=== PATIENT | female | born 1960 | race Two or more races ===

== ENCOUNTER 2016-07-26 08:05 | Day surgery (SDC) | payer MEDICAID, MEDICARE, OTHER ==
[~2016-07-26 08:05] MED LIST: Lactated Ringers 1,000 ML IV SCH; Sodium Chloride 0.9% 10 ML Syringe FLUSH PRN
[2016-07-26] MEDS ORDERED: Propofol 200 MG/20 ML SDV ONE ×2 (08:27→09:10)
--- NOTE | 2016-07-26 09:20 | PCM.HP ---
H&P History of Present Illness - General Date of Service: 07/26/16 Admit Problem/Dx: Admission Diagnosis/Problem Admission Diagnosis/Problem Carpal tunnel syndrome Source of Information: Patient, Old Records History Limitations: Reports: No Limitations - History of Present Illness Initial Comments - Free Text/Narative: Here for right carpal tunnel release Onset of Symptoms: Reports: Gradual - Related Data Allergies/Adverse Reactions: Allergies Allergy/AdvReac Type Severity Reaction Status Date / Time atorvastatin calcium Allergy Muscle Verified 07/06/15 12:07 [From Lipitor] Aches fenofibrate Allergy Dizziness Verified 07/06/15 12:07 sumatriptan [From Imitrex] Allergy Rash Verified 07/06/15 12:07 sumatriptan succinate Allergy Rash Verified 07/06/15 12:07 [From Imitrex] hmg-coa reductase inhibitors Allergy Cannot Uncoded 07/06/15 12:07 Remember Home Medications: Home Meds ALPRAZolam [Alprazolam] 0.5 mg PO BID 02/25/13 [History] Aspirin/Dipyridamole [Aggrenox 200-25 MG] 200 mg PO BID 02/25/13 [History] Atenolol [Tenormin] 25 mg PO BID 02/25/13 [History] Multivitamin [Multivitamins] 1 each PO DAILY 02/25/13 [History] Ibuprofen 200 - 400 mg PO Q6HR PRN 07/05/15 [History] Acetaminophen with Codeine [Acetaminophen-Cod #3] 1 tab PO ASDIRECTED PRN [History] Past Medical History HEENT History: Reports: Cataract Other HEENT History: seasonal allergies Cardiovascular History: Reports: Arrhythmia Other Cardiovascular History: hx. 1st degree AV block. hx. 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 Musculoskeletal History: Reports: Other (See Below) Other Musculoskeletal History: right rotator cuff tendinopathy bursitis Neurological History: Reports: TIA, Other (See Below) Other Neuro History: kidd's palsy Psychiatric History: Reports: Anxiety, Depression Endocrine/Metabolic History: Reports: Other (See Below) Other Endocrine/Metabolic History: hyperglycemia Oncologic (Cancer) History: Reports: Breast Other Oncologic History: Breast cancer chemotherapy treatment Dermatologic History: Reports: None - Past Surgical History Female Surgical History: Reports: Hysterectomy Oncologic Surgical History: Reports: Lumpectomy Other Oncologic Surgeries/Procedures: Lymph node dissection with multiple breast biopsies. Social & Family History - Tobacco Use Smoking Status *Q: Current Every Day Smoker Years of Tobacco use: 25 Packs/Tins Daily: 0.2 Used Tobacco, but Quit: Yes Month Tobacco Last Used: jan 2015 Second Hand Smoke Exposure: Yes - Caffeine Use Caffeine Use: Reports: Coffee, Tea - Alcohol Use Days Per Week of Alcohol Use: 3 Number of Drinks Per Day: 5 Total Drinks Per Week: 15 - Recreational Drug Use Recreational Drug Use: No H&P Review of Systems - Review of Systems: Review Of Systems: ROS reveals no pertinent complaints other than HPI. Exam - Exam Exam: See Below - Vital Signs Vital Signs: Last Vital Signs Temp 98.3 F 07/26/16 08:27 Pulse 69 07/26/16 08:27 Resp 20 07/26/16 08:27 BP 130/77 07/26/16 08:27 Pulse Ox Weight: 77.111 kg - Exam General: Alert, Oriented Lungs: Clear to Auscultation, Normal Respiratory Effort Cardiovascular: Regular Rate, Regular Rhythm *Q Meaningful Use (ADM) - VTE *Q VTE Criteria *Q: - Stroke *Q Stroke Criteria *Q: - AMI *Q AMI Criteria *Q: Problem List Initiated/Reviewed/Updated: Yes Orders Last 24hrs: Active Orders 24 hr Category Date Time Status Patient Status [ADT] Routine ADT 07/26/16 08:00 Active Peripheral IV Care [RC] . DIRECTED Care 07/26/16 08:00 Active Verify Patient Consent Obtain [RC] ASDIRECTED Care 07/26/16 08:00 Active Nothing Per Oral Diet [DIET] Diet 07/26/16 Breakfast Active Lactated Ringers [Ringers, Lactated] 1,000 ml Med 07/26/16 08:00 Active IV ASDIRECTED Sodium Chloride 0.9% [Saline Flush] Med 07/26/16 08:00 Active 10 ml FLUSH ASDIRECTED PRN Peripheral IV Insertion Adult [OM.PC] Routine Oth 07/26/16 08:00 Ordered Resuscitation Status Routine Resus Stat 07/25/16 10:31 Ordered Medication Orders Lactated Ringer's (Ringers, Lactated) 1,000 mls @ 125 mls/hr IV ASDIRECTED KIRIT Last Admin: 07/26/16 08:36 Dose: 125 mls/hr Sodium Chloride (Saline Flush) 10 ml FLUSH ASDIRECTED PRN PRN Reason: Keep Vein Open Assessment/Plan Comment:: Right CTS Will proceed with R CTR
--- NOTE | 2016-07-26 09:41 | PCM.OPNOTE ---
- General Post-Op/Procedure Note Date of Surgery/Procedure: 07/26/16 Operative Procedure(s): R CTR Pre Op Diagnosis: R CTS Post-Op Diagnosis: Same Anesthesia Technique: Local, MAC Primary Surgeon: Jared Baird EBL in mLs: 0 Complications: None Condition: Good Free Text/Narrative:: Intake & Output 07/25/16 07/26/16 07/26/16 22:59 06:59 14:59 Intake Total 700 Balance 700
[2016-07-26 10:50] VITALS: BP 141/81
--- NOTE | 2016-07-26 14:48 | OR ---
Date of Procedure: 07/26/2016 PREOPERATIVE DIAGNOSIS: Right carpal tunnel syndrome. POSTOPERATIVE DIAGNOSIS: Right carpal tunnel syndrome. PROCEDURE: Right carpal tunnel release. ANESTHESIA: Local MAC. PROCEDURE IN DETAIL: The patient was brought to the operating room after surgical site had been marked by myself and the patient. Time-out was performed. The right upper extremity was exsanguinated and tourniquet inflated. The hand and forearm were prepped and draped sterilely. 1% lidocaine was used to infiltrate the surgical site. A routine incision was were made over the transverse carpal ligament and extended through the palmar aponeurosis. The transverse carpal ligament was identified and sharply incised until the median nerve was visible. The ligament was split distally into the palm, then proximally into the wrist. Finger palpation and inspection revealed all constricting bands to be released. Wound was irrigated and closed with interrupted 4-0 Prolene vertical mattress sutures. Antibiotic ointment and sterile bulky pressure dressing was applied. The patient tolerated the procedure well and returned to recovery in stable condition. ESTIMATED BLOOD LOSS: None. LIBERTY LEE MD /[id number]
== END 2016-07-26 10:44 | disposition home or self-care (01) ==
LOC: LL.SDS 08:05
PROVIDERS: ATTEND Surgery
DX: G56.01 Carpal tunnel syndrome, right upper limb (principal); F41.9 Anxiety disorder, unspecified; F32.9 Major depressive disorder, single episode, unspecified; G51.0 Bell's palsy; E78.5 Hyperlipidemia, unspecified; I44.0 Atrioventricular block, first degree; F17.210 Nicotine dependence, cigarettes, uncomplicated; Z90.710 Acquired absence of both cervix and uterus; Z98.890 Other specified postprocedural states; Z86.73 Personal history of transient ischemic attack (TIA), and cerebral infarction without residual deficits; Z79.82 Long term (current) use of aspirin; Z79.899 Other long term (current) drug therapy; Z85.3 Personal history of malignant neoplasm of breast; Z92.21 Personal history of antineoplastic chemotherapy; Z88.8 Allergy status to other drugs, medicaments and biological substances
CPT/HCPCS: 64721; J2704; J7120

== ENCOUNTER 2016-08-09 07:50 | Day surgery (SDC) | payer MEDICAID, MEDICARE, OTHER ==
[2016-08-09] MEDS ORDERED: Sodium Chloride 0.9% 10 ML Syringe FLUSH PRN (08:00)
[2016-08-09] MEDS ORDERED: fentaNYL 100 MCG/2 ML SDV ONE ×2 (08:29→08:52)
[2016-08-09] MEDS ORDERED: Midazolam 1 MG/ML 2 ML SDV ONE ×2 (08:29→08:52)
[2016-08-09] MEDS ORDERED: Lactated Ringers 1,000 ML IV SCH (08:45)
[2016-08-09] MEDS ORDERED: Ketorolac 30 MG/ML SDV ONE (08:52)
--- NOTE | 2016-08-09 09:02 | PCM.HP ---
H&P History of Present Illness - General Date of Service: 08/09/16 Admit Problem/Dx: Admission Diagnosis/Problem Admission Diagnosis/Problem Carpal tunnel syndrome Source of Information: Patient, Old Records History Limitations: Reports: No Limitations - History of Present Illness Initial Comments - Free Text/Narative: Here for left CTR - Related Data Allergies/Adverse Reactions: Allergies Allergy/AdvReac Type Severity Reaction Status Date / Time atorvastatin calcium Allergy Muscle Verified 08/09/16 08:29 [From Lipitor] Aches fenofibrate Allergy Dizziness Verified 08/09/16 08:29 sumatriptan [From Imitrex] Allergy Rash Verified 08/09/16 08:29 sumatriptan succinate Allergy Rash Verified 08/09/16 08:29 [From Imitrex] hmg-coa reductase inhibitors Allergy Cannot Uncoded 08/09/16 08:29 Remember Home Medications: Home Meds ALPRAZolam [Alprazolam] 0.5 mg PO BID 02/25/13 [History] Aspirin/Dipyridamole [Aggrenox 200-25 MG] 200 mg PO BID 02/25/13 [History] Atenolol [Tenormin] 25 mg PO BID 02/25/13 [History] Multivitamin [Multivitamins] 1 each PO DAILY 02/25/13 [History] Ibuprofen 200 - 400 mg PO Q6HR PRN 07/05/15 [History] Acetaminophen with Codeine [Acetaminophen-Cod #3] 1 tab PO ASDIRECTED PRN [History] Past Medical History HEENT History: Reports: Impaired Vision Other HEENT History: wears glasses Cardiovascular History: Reports: High Cholesterol Other Cardiovascular History: TIA. Bowman's palsy. 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 Musculoskeletal History: Reports: None Other Musculoskeletal History: HX right rotator cuff tendinopathy and bursitis Neurological History: Reports: None, Other (See Below) Other Neuro History: [place] Palsy Psychiatric History: Reports: Anxiety Endocrine/Metabolic History: Reports: None Other Endocrine/Metabolic History: Hyperglycemia Hematologic History: Reports: None Oncologic (Cancer) History: Reports: None Other Oncologic History: Breast cancer chemotherapy treatment Dermatologic History: Reports: None - Past Surgical History Female Surgical History: Reports: Breast Biopsy, Hysterectomy, Mastectomy, Other (See Below) Other Female Surgeries/Procedures: lumpectomy Social & Family History - Tobacco Use Smoking Status *Q: Current Every Day Smoker Years of Tobacco use: 30 Packs/Tins Daily: 0.2 Used Tobacco, but Quit: Yes Month Tobacco Last Used: jan 2015 Second Hand Smoke Exposure: Yes - Caffeine Use Caffeine Use: Reports: Coffee - Alcohol Use Days Per Week of Alcohol Use: 3 Number of Drinks Per Day: 5 Total Drinks Per Week: 15 - Recreational Drug Use Recreational Drug Use: No H&P Review of Systems - Review of Systems: Review Of Systems: ROS reveals no pertinent complaints other than HPI. Exam - Exam Exam: See Below - Vital Signs Vital Signs: Last Vital Signs Temp 98.3 F 08/09/16 08:17 Pulse 66 08/09/16 08:17 Resp 20 08/09/16 08:17 BP 133/76 08/09/16 08:17 Pulse Ox 94 L 08/09/16 08:17 Weight: 77.111 kg - Exam General: Alert, Oriented Lungs: Clear to Auscultation, Normal Respiratory Effort Cardiovascular: Regular Rate, Regular Rhythm *Q Meaningful Use (ADM) - VTE *Q VTE Criteria *Q: - Stroke *Q Stroke Criteria *Q: - AMI *Q AMI Criteria *Q: Problem List Initiated/Reviewed/Updated: Yes Orders Last 24hrs: Active Orders 24 hr Category Date Time Status Patient Status [ADT] Routine ADT 08/09/16 08:00 Active Peripheral IV Care [RC] . DIRECTED Care 08/09/16 08:00 Active Verify Patient Consent Obtain [RC] ASDIRECTED Care 08/09/16 08:00 Active Lactated Ringers [Ringers, Lactated] 1,000 ml Med 08/09/16 08:45 Ordered IV ASDIRECTED Sodium Chloride 0.9% [Saline Flush] Med 08/09/16 08:00 Active 10 ml FLUSH ASDIRECTED PRN Peripheral IV Insertion Adult [OM.PC] Routine Oth 08/09/16 08:00 Ordered Medication Orders Lactated Ringer's (Ringers, Lactated) 1,000 mls @ 125 mls/hr IV ASDIRECTED KIRIT Sodium Chloride (Saline Flush) 10 ml FLUSH ASDIRECTED PRN PRN Reason: Keep Vein Open Assessment/Plan Comment:: A) L CTR P) OK to proceed with L CTR
--- NOTE | 2016-08-09 09:31 | PCM.OPNOTE ---
- General Post-Op/Procedure Note Date of Surgery/Procedure: 08/09/16 Operative Procedure(s): L CTR Pre Op Diagnosis: L CTS Post-Op Diagnosis: Same Anesthesia Technique: Local, MAC Primary Surgeon: Jared Baird Anesthesia Provider: Cooper PALACIOS in mLs: 0 Complications: None Condition: Good Free Text/Narrative:: Intake & Output 08/08/16 08/09/16 08/09/16 22:59 06:59 14:59 Intake Total 400 Balance 400
[2016-08-09 10:02] VITALS: BP 136/83
--- NOTE | 2016-08-09 14:43 | OR ---
Date of Procedure: 08/09/2016 PREOPERATIVE DIAGNOSIS: Left carpal tunnel syndrome. POSTOPERATIVE DIAGNOSIS: Left carpal tunnel syndrome. PROCEDURE: Left carpal tunnel release. ANESTHESIA: Local MAC. PROCEDURE IN DETAIL: The patient was brought to the operating room, where IV sedation was administered. The left hand and forearm were exsanguinated and tourniquet inflated. The hand was prepped and draped sterilely. Lidocaine 1% was used for local anesthesia. An incision was made over the transverse carpal ligament and extended through the palmar aponeurosis. The transverse carpal ligament was identified and sharply incised until the median nerve was visible. The ligament was split distally into the palm, then proximally into the wrist. Inspection and palpation reveals constricting bands to be released. Wound was irrigated and skin closed with interrupted 4-0 Prolene vertical mattress sutures. Antibiotic ointment and a sterile bulky pressure dressing was applied. Patient tolerated the procedure well. BLOOD LOSS: None. She returned to postanesthesia in stable condition. LIBERTY LEE MD /[id number]
== END 2016-08-09 11:30 | disposition home or self-care (01) ==
LOC: LL.SDS 07:50
PROVIDERS: ATTEND Surgery
DX: G56.02 Carpal tunnel syndrome, left upper limb (principal); F41.9 Anxiety disorder, unspecified; E78.00 Pure hypercholesterolemia, unspecified; R73.9 Hyperglycemia, unspecified; Z88.8 Allergy status to other drugs, medicaments and biological substances; Z79.899 Other long term (current) drug therapy; Z90.710 Acquired absence of both cervix and uterus; Z98.890 Other specified postprocedural states; F17.210 Nicotine dependence, cigarettes, uncomplicated
CPT/HCPCS: J1885; J2250; J3010

== ENCOUNTER 2017-04-03 10:50 | Observation (INO) | payer MEDICARE, MEDICAID ==
[2017-04-03 11:22] LABS: CHLORIDE,CL 106 mmol/L (98-107); SODIUM,NA 141 mmol/L (136-145)
--- NOTE | 2017-04-03 12:00 | EDM.PDOC ---
ED HPI GENERAL MEDICAL PROBLEM - General Chief Complaint: Chest Pain Stated Complaint: Chest Pain Time Seen by Provider: 04/03/17 11:14 Source of Information: Reports: Patient History Limitations: Reports: No Limitations - History of Present Illness INITIAL COMMENTS - FREE TEXT/NARRATIVE: Patient comes to ER with complex mixed complaints that have been present for the last three weeks. These included headaches (frontal and left sided), left sided arm/leg pain, left chest pain, stiff neck sensation, vertigo episodes, nausea triggered by vertigo/headaches. Originally patient present to [facility]. Due to chest pain complaint, she was referred to the ER. Chest discomfort is worse with movement and breathing. Leg/arm pain do not vary with position/time/activity. Complains of brain fog/hard to think and remember clearly. Has had chills, no fevers. Facial tics bilaterally. Increased SOB with activity. Denies cough/wheezing/URI complaints. No other GI complaints. No visual changes. Has bilateral ear pain. No drainage. Decreased appetite but no weight changes. Feels thirsty. Sometimes feels as though she can't swallow well/does not feel safe swallowing and then won't eat. Denies choking on food/water. Decreased desire to smoke or drink coffee, makes her feel worse and more jittery. Hx of elevated cholesterol, right breast CA, anxiety, HTN, ETOH Family history + numerous cancers/heart disease. 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 Chest Pain Score (Numeric/FACES): 2 Headache Pain Score (Numeric/FACES): 2 - Related Data Allergies Allergy/AdvReac Type Severity Reaction Status Date / Time atorvastatin calcium Allergy Muscle Verified 04/03/17 11:08 [From Lipitor] Aches fenofibrate Allergy Dizziness Verified 04/03/17 11:08 sumatriptan [From Imitrex] Allergy Rash Verified 04/03/17 11:08 sumatriptan succinate Allergy Rash Verified 04/03/17 11:08 [From Imitrex] hmg-coa reductase inhibitors Allergy Cannot Uncoded 04/03/17 11:08 Remember Home Meds: Home Meds ALPRAZolam [Alprazolam] 0.5 mg PO BID 02/25/13 [History] Aspirin/Dipyridamole [Aggrenox 200-25 MG] 200 mg PO BID 01/15/14 [History] Atenolol [Tenormin] 25 mg PO BID 02/25/13 [History] Multivitamin [Multivitamins] 1 each PO DAILY 02/25/13 [History] Ibuprofen 200 - 400 mg PO Q6HR PRN 07/05/15 [History] Acetaminophen with Codeine [Acetaminophen-Cod #3] 1 tab PO ASDIRECTED PRN [History] Past Medical History HEENT History: Reports: Impaired Vision Other HEENT History: wears glasses Cardiovascular History: Reports: High Cholesterol Other Cardiovascular History: hx. 1st degree AV block. hx. dyslipidemia Respiratory History: Reports: None Gastrointestinal History: Reports: None Genitourinary History: Reports: None [employer] History: Reports: None Musculoskeletal History: Reports: None Other Musculoskeletal History: right rotator cuff tendinopathy bursitis Neurological History: Reports: None, Other (See Below) Other Neuro History: Mcgrath Palsy Psychiatric History: Reports: Addiction (ETOH), Anxiety Endocrine/Metabolic History: Reports: None Other Endocrine/Metabolic History: hyperglycemia Hematologic History: Reports: None Oncologic (Cancer) History: Reports: None Other Oncologic History: Breast cancer chemotherapy treatment Dermatologic History: Reports: None - Past Surgical History Head Surgeries/Procedures: Reports: None Female Surgical History: Reports: Breast Biopsy, Hysterectomy, Mastectomy, Other (See Below) Other Female Surgeries/Procedures: lumpectomy Oncologic Surgical History: Reports: Lumpectomy Other Oncologic Surgeries/Procedures: Lymph node dissection with multiple breast biopsies. Social & Family History - Tobacco Use Smoking Status *Q: Current Every Day Smoker Years of Tobacco use: 40 Packs/Tins Daily: 0.5 Used Tobacco, but Quit: Yes Month Tobacco Last Used: jan 2015 Second Hand Smoke Exposure: Yes - Caffeine Use Caffeine Use: Reports: Coffee - Alcohol Use Days Per Week of Alcohol Use: 3 Number of Drinks Per Day: 5 Total Drinks Per Week: 15 - Recreational Drug Use Recreational Drug Use: No ED ROS GENERAL - Review of Systems Review Of Systems: See Below Constitutional: Reports: Chills, Weakness, Fatigue. Denies: Fever, Night Sweats , Diaphoresis, Decreased Appetite HEENT: Reports: Glasses, Vertigo. Denies: Dental Pain, Ear Discharge, Ear Pain , Eye Discharge, Throat Pain, Vision Change Respiratory: Reports: Shortness of Breath (with exertion). Denies: Wheezing, Pleuritic Chest Pain, Cough, Sputum, Hemoptysis Cardiovascular: Reports: Chest Pain, Dyspnea on Exertion, Lightheadedness. Denies: Blood Pressure Problem, Claudication, Edema, Orthopnea, Palpitations, PND, Syncope Endocrine: Reports: Fatigue, Polydypsia GI/Abdominal: Reports: Difficulty Swallowing (see HPI/intermittent feeling), Nausea. Denies: Abdominal Pain, Anorexia, Black Stool, Bloody Stool, Constipation, Diarrhea, Distension, Hematemesis, Hematochezia, Vomiting : Reports: No Symptoms Musculoskeletal: Reports: Neck Pain (stiff, no actual pain), Arm Pain (left), Leg Pain (left), Muscle Pain, Muscle Stiffness. Denies: Joint Swelling Skin: Reports: No Symptoms Neurological: Reports: Dizziness, Headache, Other (brain fog). Denies: Syncope , Change in Speech, Gait Disturbance Psychiatric: Reports: No Symptoms Hematologic/Lymphatic: Reports: No Symptoms ED EXAM, GENERAL - Physical Exam Exam: See Below Exam Limited By: No Limitations General Appearance: Alert, WD/WN, No Apparent Distress Eye Exam: Bilateral Eye: EOMI, PERRL, Other (no nystagmus noted, unable to induce vertigo with head rotation) Ears: Normal External Exam, Normal Canal, Hearing Grossly Normal, Normal TMs Nose: Normal Inspection Throat/Mouth: Normal Inspection, Normal Lips, Normal Gums, Normal Oropharynx, Normal Voice, No Airway Compromise, Other (has partial dentures) Head: Atraumatic, Normocephalic Neck: Normal Inspection, Supple, Non-Tender, Full Range of Motion. No: Lymphadenopathy (L), Lymphadenopathy (R) Respiratory/Chest: No Respiratory Distress, Lungs Clear, Normal Breath Sounds, No Accessory Muscle Use, Chest Non-Tender Cardiovascular: Normal Peripheral Pulses, Regular Rate, Rhythm, No Edema, No Murmur Peripheral Pulses: 2+: Radial (L), Radial (R), Dorsalis Pedis (L), Dorsalis Pedis (R) GI/Abdominal: Normal Bowel Sounds, Soft, Non-Tender, No Distention, No Abnormal Bruit, No Mass (Female) Exam: Deferred Rectal (Female) Exam: Deferred Extremities: Normal Inspection, Normal Range of Motion, Non-Tender, No Pedal Edema, Normal Capillary Refill Neurological: Alert, Oriented, Normal Cognition, Normal Gait, No Motor/Sensory Deficits, Abnormal Reflexes (Reflexes slightly increased on right upper and lower extremity vs left). No: Sensory/Motor Deficit Psychiatric: Normal Affect, Normal Mood Skin Exam: Warm, Dry, Intact EKG INTERPRETATION EKG Date: 04/03/17 Time: 10:38 Rhythm: Other (1st degree AV block) Rate (Beats/Min): 64 [place]: Normal P-Wave: Present QRS: Normal ST-T: Normal QT: Normal Comparison: NA - No Prior EKG Course - Vital Signs Last Recorded V/S: Last Vital Signs Temp 37.0 C 04/03/17 11:55 Pulse 60 04/03/17 11:55 Resp 16 04/03/17 11:55 BP 156/67 H 04/03/17 11:55 Pulse Ox 100 04/03/17 11:55 - Orders/Labs/Meds Orders: Active Orders 24 hr Category Date Time Status EKG Documentation Completion [RC] ASDIRECTED Care 04/03/17 11:17 Active Head wo Cont [CT] Stat Exams 04/03/17 11:15 Taken Sodium Chloride 0.9% [Saline Flush] Med 04/03/17 11:16 Active 10 ml FLUSH ASDIRECTED PRN Saline Lock Insert [OM.PC] Routine Oth 04/03/17 11:16 Ordered Medication Orders Acetaminophen (Tylenol) 650 mg PO Q4H PRN PRN Reason: analgesia/fever Alprazolam (Xanax) 0.5 mg PO BID KIRIT Atenolol (Tenormin) 25 mg PO BID KIRIT Dipyridamole/Aspirin (Aggrenox 200-25 Mg) 1 cap PO BID KIRIT Sodium Chloride (Saline Flush) 10 ml FLUSH ASDIRECTED PRN PRN Reason: Keep Vein Open Labs: Laboratory Tests 04/03/17 04/03/17 04/03/17 Range/Units 11:00 11:00 11:00 WBC 8.4 (4.0-10.2) K/uL RBC 4.62 (3.77-5.09) M/uL Hgb 13.6 (11.7-15.5) g/dL Hct 41.3 (34.0-46.0) % MCV 89.4 (84.0-98.0) fL MCH 29.4 (28.2-33.3) pg MCHC 32.9 (31.7-36.0) g/dL RDW 14.1 (11.2-14.1) % Plt Count 235 (150-350) K/uL Neut % (Auto) 68.5 (45.0-80.0) % Lymph % (Auto) 22.7 (10.0-50.0) % [place] % (Auto) 7.9 (2.0-14.0) % Eos % (Auto) 0.8 (0.0-5.0) % Baso % (Auto) 0.1 (0.0-2.0) % Neut # (Auto) 5.73 (1.40-7.00) K/uL Lymph # (Auto) 1.90 (0.50-3.50) K/uL [place] # (Auto) 0.66 (0.00-1.00) K/uL Eos # (Auto) 0.07 (0.00-0.50) K/uL Baso # (Auto) 0.01 (0.00-0.20) K/uL ESR (0-30) mm/hr PT 10.2 (9.8-11.7) SEC INR 1.0 D-Dimer, Quantitative < 100 (0-400) ng/mL Sodium (136-145) mmol/L Potassium (3.5-5.1) mmol/L Chloride (98-107) mmol/L Carbon Dioxide (21.0-32.0) mmol/L BUN (7-18) mg/dL Creatinine (0.51-1.17) mg/dL Est Cr Clr Drug Dosing mL/min Estimated GFR (MDRD) mL/min Glucose (74-106) mg/dL Calcium (8.5-10.1) mg/dL Magnesium (1.8-2.4) mg/dL Total Bilirubin (0.2-1.0) mg/dL AST (15-37) U/L ALT (12-78) U/L Alkaline Phosphatase (46-116) IU/L Troponin I (0.000-0.056) ng/mL NT-Pro-B Natriuret Pep (0-125) pg/mL Total Protein (6.4-8.2) g/dL Albumin (3.4-5.0) g/dL Vitamin B12 (193-986) pg/mL TSH, Ultra Sensitive (0.358-3.740) mIU/mL Specimen Type Urine Color Urine Appearance Urine pH (5.0-9.0) Ur Specific [place] (1.005-1.030) Urine Protein (NEGATIVE) mg/dL Urine Glucose (UA) (NEGATIVE) mg/dL Urine Ketones (NEGATIVE) mg/dL Urine Occult Blood (NEGATIVE) Urine Nitrite (NEGATIVE) Urine Bilirubin (NEGATIVE) Urine Urobilinogen (0.2-1.0) E.U./dL Ur Leukocyte Esterase (NEGATIVE) Urine RBC /HPF Urine WBC /HPF Ur Epithelial Cells /LPF Urine Bacteria (NONE TO FEW) /HPF Ethyl Alcohol (0.000-0.080) g/dL 04/03/17 04/03/17 04/03/17 Range/Units 11:00 11:00 11:00 WBC (4.0-10.2) K/uL RBC (3.77-5.09) M/uL Hgb (11.7-15.5) g/dL Hct (34.0-46.0) % MCV (84.0-98.0) fL MCH (28.2-33.3) pg MCHC (31.7-36.0) g/dL RDW (11.2-14.1) % Plt Count (150-350) K/uL Neut % (Auto) (45.0-80.0) % Lymph % (Auto) (10.0-50.0) % [place] % (Auto) (2.0-14.0) % Eos % (Auto) (0.0-5.0) % Baso % (Auto) (0.0-2.0) % Neut # (Auto) (1.40-7.00) K/uL Lymph # (Auto) (0.50-3.50) K/uL [place] # (Auto) (0.00-1.00) K/uL Eos # (Auto) (0.00-0.50) K/uL Baso # (Auto) (0.00-0.20) K/uL ESR 0 (0-30) mm/hr PT (9.8-11.7) SEC INR D-Dimer, Quantitative (0-400) ng/mL Sodium 141 (136-145) mmol/L Potassium 3.9 (3.5-5.1) mmol/L Chloride 106 (98-107) mmol/L Carbon Dioxide 26.0 (21.0-32.0) mmol/L BUN 11 (7-18) mg/dL Creatinine 0.61 (0.51-1.17) mg/dL Est Cr Clr Drug Dosing 90.46 mL/min Estimated GFR (MDRD) > 60 mL/min Glucose 112 H (74-106) mg/dL Calcium 8.7 (8.5-10.1) mg/dL Magnesium 2.1 (1.8-2.4) mg/dL Total Bilirubin 0.3 (0.2-1.0) mg/dL AST 17 (15-37) U/L ALT 21 (12-78) U/L Alkaline Phosphatase 70 (46-116) IU/L Troponin I 0.000 (0.000-0.056) ng/mL NT-Pro-B Natriuret Pep 173 H (0-125) pg/mL Total Protein 7.2 (6.4-8.2) g/dL Albumin 3.7 (3.4-5.0) g/dL Vitamin B12 386 (193-986) pg/mL TSH, Ultra Sensitive 1.222 (0.358-3.740) mIU/mL Specimen Type Urine Color Urine Appearance Urine pH (5.0-9.0) Ur Specific [place] (1.005-1.030) Urine Protein (NEGATIVE) mg/dL Urine Glucose (UA) (NEGATIVE) mg/dL Urine Ketones (NEGATIVE) mg/dL Urine Occult Blood (NEGATIVE) Urine Nitrite (NEGATIVE) Urine Bilirubin (NEGATIVE) Urine Urobilinogen (0.2-1.0) E.U./dL Ur Leukocyte Esterase (NEGATIVE) Urine RBC /HPF Urine WBC /HPF Ur Epithelial Cells /LPF Urine Bacteria (NONE TO FEW) /HPF Ethyl Alcohol (0.000-0.080) g/dL 04/03/17 04/03/17 Range/Units 11:00 11:28 WBC (4.0-10.2) K/uL RBC (3.77-5.09) M/uL Hgb (11.7-15.5) g/dL Hct (34.0-46.0) % MCV (84.0-98.0) fL MCH (28.2-33.3) pg MCHC (31.7-36.0) g/dL RDW (11.2-14.1) % Plt Count (150-350) K/uL Neut % (Auto) (45.0-80.0) % Lymph % (Auto) (10.0-50.0) % [place] % (Auto) (2.0-14.0) % Eos % (Auto) (0.0-5.0) % Baso % (Auto) (0.0-2.0) % Neut # (Auto) (1.40-7.00) K/uL Lymph # (Auto) (0.50-3.50) K/uL [place] # (Auto) (0.00-1.00) K/uL Eos # (Auto) (0.00-0.50) K/uL Baso # (Auto) (0.00-0.20) K/uL ESR (0-30) mm/hr PT (9.8-11.7) SEC INR D-Dimer, Quantitative (0-400) ng/mL Sodium (136-145) mmol/L Potassium (3.5-5.1) mmol/L Chloride (98-107) mmol/L Carbon Dioxide (21.0-32.0) mmol/L BUN (7-18) mg/dL Creatinine (0.51-1.17) mg/dL Est Cr Clr Drug Dosing mL/min Estimated GFR (MDRD) mL/min Glucose (74-106) mg/dL Calcium (8.5-10.1) mg/dL Magnesium (1.8-2.4) mg/dL Total Bilirubin (0.2-1.0) mg/dL AST (15-37) U/L ALT (12-78) U/L Alkaline Phosphatase (46-116) IU/L Troponin I (0.000-0.056) ng/mL NT-Pro-B Natriuret Pep (0-125) pg/mL Total Protein (6.4-8.2) g/dL Albumin (3.4-5.0) g/dL Vitamin B12 (193-986) pg/mL TSH, Ultra Sensitive (0.358-3.740) mIU/mL Specimen Type Urincc Urine Color Light yellow Urine Appearance Clear Urine pH 6.0 (5.0-9.0) Ur Specific [place] <= 1.005 (1.005-1.030) Urine Protein Negative (NEGATIVE) mg/dL Urine Glucose (UA) Negative (NEGATIVE) mg/dL Urine Ketones Negative (NEGATIVE) mg/dL Urine Occult Blood Trace-intact H (NEGATIVE) Urine Nitrite Negative (NEGATIVE) Urine Bilirubin Negative (NEGATIVE) Urine Urobilinogen 0.2 (0.2-1.0) E.U./dL Ur Leukocyte Esterase Trace H (NEGATIVE) Urine RBC 0-5 /HPF Urine WBC 0-5 /HPF Ur Epithelial Cells Few /LPF Urine Bacteria Few (NONE TO FEW) /HPF Ethyl Alcohol 0.005 (0.000-0.080) g/dL Meds: Medications Generic Name Dose Route Start Last Admin Trade Name Freq PRN Reason Stop Dose Admin Acetaminophen 650 mg 04/03/17 13:22 Tylenol PO Q4H PRN analgesia/fever Alprazolam 0.5 mg 04/03/17 18:00 Xanax PO BID KIRIT Atenolol 25 mg 04/03/17 18:00 Tenormin PO BID KIRIT Dipyridamole/Aspirin 1 cap 04/03/17 18:00 Aggrenox 200-25 Mg PO BID KIRIT Sodium Chloride 10 ml 04/03/17 11:16 Saline Flush FLUSH ASDIRECTED PRN Keep Vein Open - Radiology Interpretation CT Results Date: 04/03/17 (Unremarkable head CT) - Re-Assessments/Exams Free Text/Narrative Re-Assessment/Exam: EKG/Troponin unremarkable for acute ischemia. Head CT negative. Other labs, including Vit D/Mg/TSH/B12 requested. Overall an unremarkable workup. Patient denies moving residences and no know toxic exposures. She does appear to be more hyper-reflexive on left when compared to right, but otherwise nonfocal exam. Plan at this time is to admit patient as observation patient overnight. Will continue serial Troponin/CKMB as well as schedule morning EKG. Given the accompanying complaints does appear to not be suggestive of acute coronary syndrome. Patient ate lunch without issue. However given her complaint in ER about having intermittent swallow concerns, will have swallowing evaluation performed. Only change she can recall is getting the new partial dentures approximately 3 weeks ago. Uncertain as to specific cause/causes of patient's numerous complaints at this time. Discussed patient with [facility]. They are aware of the observation admission and will round on patient tomorrow. 04/03/17 13:57 Departure - Departure Time of Disposition: 12:30 Disposition: Refer to Observation Condition: Good Clinical Impression: Chest pain of uncertain etiology, Pain, Vertigo, Does not feel right - Discharge Information - Problem List & Annotations (1) Chest pain of uncertain etiology SNOMED Code(s): 38881074 Code(s): R07.89 - OTHER CHEST PAIN Status: Acute Priority: High Current Visit: Yes Annotation/Comment:: 3 week history of intermittent chest pain, left side. Is made worse with movement/breathing which suggests musculoskeletal cause. However will admit and place on telemetry as well as obtain serial cardiac markers to more fully rule out cardiac etiology. (2) Does not feel right SNOMED Code(s): 284380288 Code(s): R68.89 - OTHER GENERAL SYMPTOMS AND SIGNS Status: Acute Priority : High Current Visit: Yes Annotation/Comment:: See HPI. Patient has multiple complaints. No recent toxic eposures or infection/illnesses per patient. Unremarkable workup including labs/head CT (3) Pain SNOMED Code(s): 82881116 Code(s): R52 - PAIN, UNSPECIFIED Status: Acute Priority: Medium Current Visit: Yes Annotation/Comment:: 3 week history of left sided limb pain , left chest pain, headaches. (4) Vertigo SNOMED Code(s): 192757004 Code(s): R42 - DIZZINESS AND GIDDINESS Status: Acute Priority: Medium Current Visit: Yes Annotation/Comment:: intermittent vertigo, triggered/made worse by head rotation. (5) History of ETOH abuse SNOMED Code(s): 250620212 Code(s): Z87.898 - PERSONAL HISTORY OF OTHER SPECIFIED CONDITIONS Status: Chronic Priority: Medium Current Visit: Yes Annotation/Comment:: Continues to drink intermittently per social history (6) History of breast cancer SNOMED Code(s): 196297461 Code(s): Z85.3 - PERSONAL HISTORY OF MALIGNANT NEOPLASM OF BREAST Status: Acute Priority: Low Current Visit: No (7) Hypertension SNOMED Code(s): 15487728 Code(s): I10 - ESSENTIAL (PRIMARY) HYPERTENSION Status: Chronic Priority : Low Current Visit: No Qualifiers: Hypertension type: essential hypertension Qualified Code(s): I10 - Essential (primary) hypertension (8) Anxiety SNOMED Code(s): 89704755 Code(s): F41.9 - ANXIETY DISORDER, UNSPECIFIED Status: Chronic Priority: Low Current Visit: No (9) Dyslipidemia SNOMED Code(s): 511879876 Code(s): E78.5 - HYPERLIPIDEMIA, UNSPECIFIED Status: Chronic Priority: Low Current Visit: No - Problem List Review Problem List Initiated/Reviewed/Updated: Yes - My Orders Last 24 Hours: My Active Orders 04/03/17 11:15 Head wo Cont [CT] Stat 04/03/17 11:16 Sodium Chloride 0.9% [Saline Flush] 10 ml FLUSH ASDIRECTED PRN Saline Lock Insert [OM.PC] Routine 04/03/17 11:17 EKG Documentation Completion [RC] ASDIRECTED - Assessment/Plan Admission H&P: Please use this note as an admission H&P Last 24 Hours: My Active Orders 04/03/17 11:15 Head wo Cont [CT] Stat 04/03/17 11:16 Sodium Chloride 0.9% [Saline Flush] 10 ml FLUSH ASDIRECTED PRN Saline Lock Insert [OM.PC] Routine 04/03/17 11:17 EKG Documentation Completion [RC] ASDIRECTED Assessment:: Multiple complaints in a patient that includes chest pain. Uncertain etiology. Plan: admit observation. Telemetry. Serial troponin/CKMB. Repeat EKG in AM. Swallow eval in AM.
[2017-04-03] MEDS ORDERED: Acetaminophen 325 MG Tab PO PRN (13:22)
[2017-04-03] MEDS ORDERED: NICOTINE GUM 2 MG BUCCAL SCH (15:30)
[2017-04-03] MEDS: ALPRAZolam 0.25 MG Tab PO SCH (17:43)
[2017-04-03] MEDS: Aspirin/Dipyridamole 200-25 MG Cap.ER PO SCH ×2 (17:43→18:15)
[2017-04-03] MEDS: Atenolol 25 MG Tab PO SCH (17:44)
[2017-04-03] MEDS ORDERED: Nitroglycerin 0.4 MG Tab.SL SL PRN (19:44)
[2017-04-03] MEDS ORDERED: Acetaminophen/Codeine 300-30 MG Tab PO PRN (21:23)
[2017-04-03] MEDS: Ondansetron 4 MG/2 ML SDV IVPUSH PRN (21:44)
[2017-04-03] MEDS: Sodium Chloride 0.9% 10 ML Syringe FLUSH PRN (21:44)
[2017-04-04] MEDS: Atenolol 25 MG Tab PO SCH ×2 (08:07→17:58)
[2017-04-04] MEDS: Aspirin/Dipyridamole 200-25 MG Cap.ER PO SCH (08:07)
[2017-04-04] MEDS: ALPRAZolam 0.25 MG Tab PO SCH ×2 (08:07→17:57)
[2017-04-04] MEDS: Ondansetron 4 MG/2 ML SDV IVPUSH PRN (08:12)
[2017-04-04] MEDS: Sodium Chloride 0.9% 10 ML Syringe FLUSH PRN ×2 (08:12→15:50)
--- NOTE | 2017-04-04 13:58 | PCM.PN ---
- General Info Date of Service: 04/04/17 Functional Status: Reports: Other (still with severe right sided headache) - Review of Systems HEENT: Reports: Headaches Pulmonary: Reports: No Symptoms Cardiovascular: Reports: Chest Pain Gastrointestinal: Reports: No Symptoms Genitourinary: Reports: No Symptoms Musculoskeletal: Reports: Other (muscle aches and pains) Skin: Reports: No Symptoms Neurological: Reports: No Symptoms Psychiatric: Reports: No Symptoms - Patient Data Vitals - Most Recent: Last Vital Signs Temp 98.2 F 04/04/17 05:32 Pulse 60 04/04/17 08:07 Resp 16 04/04/17 05:32 BP 150/89 H 04/04/17 08:07 Pulse Ox 96 04/04/17 05:32 Weight - Most Recent: 163 lb 3.014 oz I&O - Last 24 Hours: Intake & Output 04/03/17 04/04/17 04/04/17 22:59 06:59 14:59 Intake Total 740 960 Output Total 250 Balance 740 -250 960 Lab Results Last 24 Hours: Laboratory Results - last 24 hr 04/03/17 04/04/17 Range/Units 16:30 06:55 Creatine Kinase 83 65 (26-308) U/L Creatine Kinase Index 0.6 1.1 (0.0-2.5) % CK-MB (CK-2) 0.50 0.70 (0.00-3.60) ng/mL Troponin I 0.000 0.002 (0.000-0.056) ng/mL Med Orders - Current: Current Medications Acetaminophen (Tylenol) 650 mg PO Q4H PRN PRN Reason: analgesia/fever Last Admin: 04/04/17 08:11 Dose: 650 mg Acetaminophen/Codeine Phosphate (Tylenol With Codeine No.3 300mg/30mg) 2 tab PO Q4H PRN PRN Reason: Pain (severe 7-10) Last Admin: 04/03/17 21:44 Dose: 2 tab Alprazolam (Xanax) 0.5 mg PO BID [facility] Last Admin: 04/04/17 08:07 Dose: 0.5 mg Atenolol (Tenormin) 25 mg PO BID [facility] Last Admin: 04/04/17 08:07 Dose: 25 mg Dipyridamole/Aspirin (Aggrenox 200-25 Mg) 1 cap PO BID KIRIT Last Admin: 04/04/17 08:07 Dose: 1 cap Nitroglycerin (Nitrostat) 0.4 mg SL Q5M PRN PRN Reason: Chest Pain Last Admin: 04/03/17 21:08 Dose: 0.4 mg Nicotine Gum 2mg 0 each [place]AL ASDIRECTED [facility] Ondansetron HCl (Zofran) 4 mg IVPUSH Q6H PRN PRN Reason: Nausea/Vomiting Last Admin: 04/04/17 08:12 Dose: 4 mg Sodium Chloride (Saline Flush) 10 ml FLUSH ASDIRECTED PRN PRN Reason: Keep Vein Open Last Admin: 04/04/17 08:12 Dose: 10 ml Sodium Chloride (Saline Flush) 10 ml FLUSH Q12HR [facility] - Exam Quality Assessment: Supplemental Oxygen (helps headache) General: Alert, Cooperative HEENT: Pupils Equal, Pupils Reactive, EOMI, Mucous Membr. Moist/Binger Neck: Trachea Midline, No JVD Lungs: Clear to Auscultation, Normal Respiratory Effort Cardiovascular: Regular Rate, Regular Rhythm GI/Abdominal Exam: Soft, Non-Tender, No Distention (Female) Exam: Deferred Back Exam: Normal Inspection Extremities: Normal Inspection, Non-Tender, No Pedal Edema Skin: Warm, Dry, Intact Neurological: No New Focal Deficit Psy/Mental Status: Alert, Normal Affect, Normal Mood - Problem List & Annotations (1) Headache SNOMED Code(s): 84430067 Code(s): R51 - HEADACHE Status: Acute Priority: High Current Visit: Yes Qualifiers: Headache type: new daily persistent Qualified Code(s): G44.52 - New daily persistent headache (NDPH) (2) Chest pain of uncertain etiology SNOMED Code(s): 45840741 Code(s): R07.89 - OTHER CHEST PAIN Status: Acute Priority: High Current Visit: Yes Annotation/Comment:: 3 week history of intermittent chest pain, left side. Is made worse with movement/breathing which suggests musculoskeletal cause. However will admit and place on telemetry as well as obtain serial cardiac markers to more fully rule out cardiac etiology. (3) Does not feel right SNOMED Code(s): 692697234 Code(s): R68.89 - OTHER GENERAL SYMPTOMS AND SIGNS Status: Acute Priority : High Current Visit: Yes Annotation/Comment:: See HPI. Patient has multiple complaints. No recent toxic eposures or infection/illnesses per patient. Unremarkable workup including labs/head CT (4) Pain SNOMED Code(s): 40785341 Code(s): R52 - PAIN, UNSPECIFIED Status: Acute Priority: Medium Current Visit: Yes Annotation/Comment:: 3 week history of left sided limb pain , left chest pain, headaches. (5) History of ETOH abuse SNOMED Code(s): 900285084 Code(s): Z87.898 - PERSONAL HISTORY OF OTHER SPECIFIED CONDITIONS Status: Chronic Priority: Medium Current Visit: Yes Annotation/Comment:: Continues to drink intermittently per social history (6) History of breast cancer SNOMED Code(s): 047366861 Code(s): Z85.3 - PERSONAL HISTORY OF MALIGNANT NEOPLASM OF BREAST Status: Acute Priority: Low Current Visit: No (7) Anxiety SNOMED Code(s): 11556903 Code(s): F41.9 - ANXIETY DISORDER, UNSPECIFIED Status: Chronic Priority: Low Current Visit: No (8) Dyslipidemia SNOMED Code(s): 730036707 Code(s): E78.5 - HYPERLIPIDEMIA, UNSPECIFIED Status: Chronic Priority: Low Current Visit: No (9) Hypertension SNOMED Code(s): 99733046 Code(s): I10 - ESSENTIAL (PRIMARY) HYPERTENSION Status: Chronic Priority : Low Current Visit: No Qualifiers: Hypertension type: essential hypertension Qualified Code(s): I10 - Essential (primary) hypertension (10) Tetrahydrocannabinol (THC) use disorder, mild, abuse SNOMED Code(s): 39110902 Code(s): F12.10 - CANNABIS ABUSE, UNCOMPLICATED Status: Acute Priority: Medium Current Visit: Yes - Problem List Review Problem List Initiated/Reviewed/Updated: Yes - My Orders Last 24 Hours: My Active Orders 04/04/17 20:00 Sodium Chloride 0.9% [Saline Flush] 10 ml FLUSH Q12HR 04/05/17 05:11 EKG Documentation Completion [RC] ASDIRECTED CBC WITH AUTO DIFF [HEME] Routine CMP [COMPREHENSIVE METABOLIC PN,CMP] [CHEM] Routine CRP [C-REACTIVE PROTEIN] [CHEM] Routine SEDIMENTATION RATE MANUAL [HEME] Routine TROPONIN I [CHEM] Routine EKG 12 Lead [EK] Routine - Plan Plan:: 04/04/17 Maddison Abdullahi MD Still with severe headache right side of head. Still some chest pain. Troponin negative. Continue work up.
[2017-04-04] MEDS: Ketorolac 30 MG/ML SDV IVPUSH SCH ×2 (15:49→20:42)
[2017-04-04] MEDS: Famotidine 20 MG/2 ML SDV IVPUSH SCH (17:58)
[2017-04-04] MEDS: Sodium Chloride 0.9% 10 ML Syringe FLUSH SCH (20:42)
[2017-04-05] MEDS: Ketorolac 30 MG/ML SDV IVPUSH SCH ×2 (03:23→07:55)
[2017-04-05 07:49] LABS: CHLORIDE,CL 106 mmol/L (98-107); SODIUM,NA 139 mmol/L (136-145)
[2017-04-05] MEDS: Famotidine 20 MG/2 ML SDV IVPUSH SCH (07:54)
[2017-04-05] MEDS: Sodium Chloride 0.9% 10 ML Syringe FLUSH SCH (07:54)
[2017-04-05] MEDS: ALPRAZolam 0.25 MG Tab PO SCH (07:54)
[2017-04-05] MEDS: Atenolol 25 MG Tab PO SCH (07:55)
--- NOTE | 2017-04-05 11:48 | PCM.PN ---
- General Info Date of Service: 04/05/17 Functional Status: Reports: Tolerating Diet, Ambulating - Review of Systems General: Reports: Other (Feeling much better than on admit) HEENT: Reports: Headaches (headache this morning, generalizes to frontal area bilaterally - almost gone now ) Pulmonary: Reports: No Symptoms Cardiovascular: Reports: No Symptoms Gastrointestinal: Reports: No Symptoms, Other (does get nauseated with headache , nausea resolved after SINCLAIR pain resolved) Genitourinary: Reports: No Symptoms Musculoskeletal: Reports: No Symptoms Skin: Reports: No Symptoms Neurological: Reports: No Symptoms Psychiatric: Reports: No Symptoms - Patient Data Vitals - Most Recent: Last Vital Signs Temp 97.5 F 04/05/17 08:00 Pulse 58 L 04/05/17 08:00 Resp 16 04/05/17 08:00 BP 170/80 H 04/05/17 08:00 Pulse Ox 95 04/05/17 08:00 Weight - Most Recent: 163 lb 3.014 oz I&O - Last 24 Hours: Intake & Output 04/04/17 04/05/17 04/05/17 22:59 06:59 14:59 Intake Total 600 1200 Balance 600 1200 Lab Results Last 24 Hours: Laboratory Results - last 24 hr 04/05/17 04/05/17 Range/Units 06:50 06:50 WBC 7.3 (4.0-10.2) K/uL RBC 4.61 (3.77-5.09) M/uL Hgb 13.4 (11.7-15.5) g/dL Hct 41.1 (34.0-46.0) % MCV 89.2 (84.0-98.0) fL MCH 29.1 (28.2-33.3) pg MCHC 32.6 (31.7-36.0) g/dL RDW 14.0 (11.2-14.1) % Plt Count 226 (150-350) K/uL Neut % (Auto) 60.8 (45.0-80.0) % Lymph % (Auto) 28.3 (10.0-50.0) % Angelina % (Auto) 9.6 (2.0-14.0) % Eos % (Auto) 1.2 (0.0-5.0) % Baso % (Auto) 0.1 (0.0-2.0) % Neut # (Auto) 4.42 (1.40-7.00) K/uL Lymph # (Auto) 2.06 (0.50-3.50) K/uL Angelina # (Auto) 0.70 (0.00-1.00) K/uL Eos # (Auto) 0.09 (0.00-0.50) K/uL Baso # (Auto) 0.01 (0.00-0.20) K/uL ESR 0 (0-30) mm/hr Sodium 139 (136-145) mmol/L Potassium 4.1 (3.5-5.1) mmol/L Chloride 106 (98-107) mmol/L Carbon Dioxide 25.7 (21.0-32.0) mmol/L BUN 14 (7-18) mg/dL Creatinine 0.56 (0.51-1.17) mg/dL Est Cr Clr Drug Dosing 98.37 mL/min Estimated GFR (MDRD) > 60 mL/min Glucose 108 H (74-106) mg/dL Calcium 8.5 (8.5-10.1) mg/dL Total Bilirubin 0.3 (0.2-1.0) mg/dL AST 12 L (15-37) U/L ALT 20 (12-78) U/L Alkaline Phosphatase 65 (46-116) IU/L Troponin I 0.000 (0.000-0.056) ng/mL C-Reactive Protein < 0.1 (<=0.9) mg/dL Total Protein 6.7 (6.4-8.2) g/dL Albumin 3.3 L (3.4-5.0) g/dL Med Orders - Current: Current Medications Acetaminophen (Tylenol) 650 mg PO Q4H PRN PRN Reason: analgesia/fever Last Admin: 04/04/17 08:11 Dose: 650 mg Acetaminophen/Codeine Phosphate (Tylenol With Codeine No.3 300mg/30mg) 2 tab PO Q4H PRN PRN Reason: Pain (severe 7-10) Last Admin: 04/03/17 21:44 Dose: 2 tab Alprazolam (Xanax) 0.5 mg PO BID [facility] Last Admin: 04/05/17 07:54 Dose: 0.5 mg Atenolol (Tenormin) 25 mg PO BID [facility] Last Admin: 04/05/17 07:55 Dose: 25 mg Famotidine (Pepcid) 20 mg IVPUSH BID [facility] Last Admin: 04/05/17 07:54 Dose: 20 mg Ketorolac Tromethamine (Toradol) 30 mg IVPUSH Q6H [facility] Stop: 04/09/17 14:00 Last Admin: 04/05/17 07:55 Dose: 30 mg Nitroglycerin (Nitrostat) 0.4 mg SL Q5M PRN PRN Reason: Chest Pain Last Admin: 04/03/17 21:08 Dose: 0.4 mg Nicotine Gum 2mg 0 each BUCCAL ASDIRECTED [facility] Ondansetron HCl (Zofran) 4 mg IVPUSH Q6H PRN PRN Reason: Nausea/Vomiting Last Admin: 04/04/17 08:12 Dose: 4 mg Sodium Chloride (Saline Flush) 10 ml FLUSH ASDIRECTED PRN PRN Reason: Keep Vein Open Last Admin: 04/04/17 15:50 Dose: 10 ml Sodium Chloride (Saline Flush) 10 ml FLUSH Q12HR [facility] Last Admin: 04/05/17 07:54 Dose: 10 ml Discontinued Medications Dipyridamole/Aspirin (Aggrenox 200-25 Mg) 1 cap PO BID [facility] Last Admin: 04/04/17 08:07 Dose: 1 cap - Exam General: Alert, Oriented HEENT: Pupils Equal, Pupils Reactive, EOMI, Mucous Membr. Moist/[place] Neck: Supple, Trachea Midline, No JVD Lungs: Clear to Auscultation, Normal Respiratory Effort Cardiovascular: Regular Rate, Regular Rhythm GI/Abdominal Exam: Normal Bowel Sounds, Soft, Non-Tender, No Organomegaly, No Distention (Female) Exam: Deferred Back Exam: Normal Inspection, Full Range of Motion Extremities: No Pedal Edema Skin: Warm, Dry, Intact Neurological: No New Focal Deficit Psy/Mental Status: Alert, Normal Affect, Normal Mood - Problem List Review Problem List Initiated/Reviewed/Updated: Yes - Plan Plan:: 04/04/17 Maddison Abdullahi MD Still with severe headache right side of head. Still some chest pain. Troponin negative. Continue work up. 04-05-17 Melody Do PA-C Will increase Atenolol to 50 mg BID, for SINCLAIR and HTN. Discharge home today on po Toradol, and see back in the clinic on 03-29-17. No Aggrenox due to severe interaction possible between Toradol and Aggrenox.
[2017-04-05 12:30] VITALS: BP 155/78
--- NOTE | 2017-04-06 12:44 | PCM.DCSUM1 ---
Discharge Summary - Hospital Course Brief History: Was admitted via ER for observation with c/o CP, left-sided MS pain and headache. Cardiac and neurology examinations initiated. - Discharge Data Discharge Date: 04/05/17 Discharge Disposition: Home, Self-Care 01 Condition: Good - Patient Summary/Data Consults: Consultations 04/03/17 13:30 Consult to Speech Language Pathology [SALES SERVICE PROFESSIONAL Evaluation and Treatment] [CONS] Routine Hospital Course: All work-up has been negative. Patient did experience recurrent but not intractable headache. - Patient Instructions Diet: Heart Healthy Diet Activity: As Tolerated Driving: May Drive Today Showering/Bathing: May Shower Other/Special Instructions: NO WORK PENDING FOLLOW UP AT [facility] 03-29-17. Call [phone] to schedule appointment. - Discharge Plan Prescriptions/Med Rec: Atenolol [Tenormin] 50 mg PO BID #30 tablet Home Medications: Home Meds ALPRAZolam [Alprazolam] 0.5 mg PO BID 02/25/13 [History] Multivitamin [Multivitamins] 1 each PO DAILY 02/25/13 [History] Acetaminophen with Codeine [Acetaminophen-Cod #3] 1 tab PO ASDIRECTED PRN [History] Atenolol [Tenormin] 50 mg PO BID #30 tablet 04/05/17 [Rx] Patient Handouts: Ketorolac tablets Forms: ED Department Discharge Referrals: Elaine Gonzalez NP [Primary Care Provider] - - Discharge Summary/Plan Comment DC Time >30 min.: Yes Discharge Summary/Plan Comment: Discharged home on increased dose of Tenormin, and a small amount of po Toradol to use prn headache. Will see back in the clinic next week. - Patient Data Vitals - Most Recent: Last Vital Signs Temp 97.8 F 04/05/17 12:00 Pulse 64 04/05/17 12:00 Resp 15 04/05/17 12:00 BP 155/78 H 04/05/17 12:00 Pulse Ox 94 L 04/05/17 12:00 Weight - Most Recent: 163 lb 3.014 oz Med Orders - Current: Current Medications Discontinued Medications Acetaminophen (Tylenol) 650 mg PO Q4H PRN PRN Reason: analgesia/fever Last Admin: 04/04/17 08:11 Dose: 650 mg Acetaminophen/Codeine Phosphate (Tylenol With Codeine No.3 300mg/30mg) 2 tab PO Q4H PRN PRN Reason: Pain (severe 7-10) Last Admin: 04/03/17 21:44 Dose: 2 tab Alprazolam (Xanax) 0.5 mg PO BID [facility]CLUD[facility] Last Admin: 04/05/17 07:54 Dose: 0.5 mg Atenolol (Tenormin) 25 mg PO BID COUNT [facility]CLUDES [facility] Last Admin: 04/05/17 07:55 Dose: 25 mg Dipyridamole/Aspirin (Aggrenox 200-25 Mg) 1 cap PO BID [facility] Last Admin: 04/04/17 08:07 Dose: 1 cap Famotidine (Pepcid) 20 mg IVPUSH BID [facility] Last Admin: 04/05/17 07:54 Dose: 20 mg Ketorolac Tromethamine (Toradol) 30 mg IVPUSH Q6H COUNT [facility]CLUDES [facility] Stop: 04/09/17 14:00 Last Admin: 04/05/17 07:55 Dose: 30 mg Nitroglycerin (Nitrostat) 0.4 mg SL Q5M PRN PRN Reason: Chest Pain Last Admin: 04/03/17 21:08 Dose: 0.4 mg Nicotine Gum 2mg 0 each BUCCAL ASDIRECTED COUNT [facility]CLUDES [facility] Ondansetron HCl (Zofran) 4 mg IVPUSH Q6H PRN PRN Reason: Nausea/Vomiting Last Admin: 04/04/17 08:12 Dose: 4 mg Sodium Chloride (Saline Flush) 10 ml FLUSH ASDIRECTED PRN PRN Reason: Keep Vein Open Last Admin: 04/04/17 15:50 Dose: 10 ml Sodium Chloride (Saline Flush) 10 ml FLUSH Q12HR [facility]CLUD[facility] Last Admin: 04/05/17 07:54 Dose: 10 ml *Q Meaningful Use (DIS) - VTE *Q VTE Criteria *Q: - Stroke *Q Stroke Criteria *Q: - AMI *Q AMI Criteria *Q:
== END 2017-04-05 13:20 | disposition home or self-care (01) ==
LOC: LL.ED 10:50 → LL.MS 12:07
PROVIDERS: ADMIT Emergency Medicine; ATTEND Family Medicine
DX: G44.52 New daily persistent headache (NDPH) (principal); R07.89 Other chest pain; R68.89 Other general symptoms and signs; R42 Dizziness and giddiness; I10 Essential (primary) hypertension; F41.9 Anxiety disorder, unspecified; E78.5 Hyperlipidemia, unspecified; Z87.898 Personal history of other specified conditions; Z85.3 Personal history of malignant neoplasm of breast; Z88.8 Allergy status to other drugs, medicaments and biological substances; Z79.899 Other long term (current) drug therapy; F12.10 Cannabis abuse, uncomplicated
CPT/HCPCS: 36415; 70450; 71046; 80053; 80305; 81001; 82550; 82553; 82607; 83735; 83880; 84443; 84484; 85025; 85379; 85610; 85651; 86140; 87804; 92526; 92610; 93005; 93010; 96374; 96375; 96376; 99285; A9270; G0378; G0480; J1885; J2405; J7050; 99235; S0028

== ENCOUNTER 2017-08-02 12:42 | Emergency (ER) | payer MEDICARE, MEDICAID ==
[2017-08-02 13:03] VITALS: BP 154/73
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
== END 2017-08-02 14:20 | disposition home or self-care (01) ==
LOC: LL.ED 12:42
DX: S97.82XA Crushing injury of left foot, initial encounter (principal); E78.00 Pure hypercholesterolemia, unspecified; F41.9 Anxiety disorder, unspecified; Z79.899 Other long term (current) drug therapy; Z79.82 Long term (current) use of aspirin; Z88.8 Allergy status to other drugs, medicaments and biological substances; Z91.09 Other allergy status, other than to drugs and biological substances; Y04.0XXA Assault by unarmed brawl or fight, initial encounter
CPT/HCPCS: 73630-LT; 99283

== ENCOUNTER 2019-01-14 23:03 | Emergency (ER) | payer MEDICARE, MEDICAID ==
--- NOTE | 2019-01-14 23:23 | EDM.PDOC ---
ED HPI GENERAL MEDICAL PROBLEM - General Chief Complaint: General Stated Complaint: alcohol intoxication Time Seen by Provider: 01/14/19 23:12 Source of Information: Reports: Patient, EMS, Family History Limitations: Reports: Intoxication - History of Present Illness INITIAL COMMENTS - FREE TEXT/NARRATIVE: Patient brought in to ER by EMS for evaluation of intoxication after family became concerned about her behavior. They were visiting the patient this evening and she seemed overall well. Was upset about having to put her 15 year old dog down yesterday. She has history of alcoholism. Family reportedly gave the patient 3 beers to have/drink tonight. Patient says that she drank most of the beer after the family left and had "one shot" of blackberry piper. Denies other ETOH intake. Took her prescribed Xanax this evening. Says that all of the sudden she was extremely fatigued and that everything hit her like "a ton of bricks". It was at this time the family called the patient and became concerned about her intoxication. They report that they have never seen her quite this affected and were worried so they called EMS. Patient denies taking any extra Xanax, saying she took one this morning as prescribed in addition to her evening dose. She denies using other drugs. ROS + for intoxication and nausea. Otherwise unremarkable. - Related Data Allergies Allergy/AdvReac Type Severity Reaction Status Date / Time atorvastatin calcium Allergy Muscle Verified 01/15/19 01:22 [From Lipitor] Aches fenofibrate Allergy Dizziness Verified 01/15/19 01:22 sumatriptan [From Imitrex] Allergy Rash Verified 01/15/19 01:22 sumatriptan succinate Allergy Rash Verified 01/15/19 01:22 [From Imitrex] hmg-coa reductase inhibitors Allergy Cannot Uncoded 01/15/19 01:22 Remember Home Meds: Home Meds ALPRAZolam [Alprazolam] 0.5 mg PO TID 02/25/13 [History] Multivitamin [Multivitamins] 1 each PO DAILY 02/25/13 [History] Acetaminophen with Codeine [Acetaminophen-Cod #3] 1 tab PO BID PRN 07/24/16 [ History] Aspirin/Dipyridamole [Aggrenox 200-25 MG] 1 cap PO BID 08/02/17 [History] Metoprolol Tartrate 50 mg PO BID 08/02/17 [History] Past Medical History HEENT History: Reports: Impaired Vision Other HEENT History: wears glasses Cardiovascular History: Reports: High Cholesterol Other Cardiovascular History: hx. 1st degree AV block. hx. dyslipidemia Respiratory History: Reports: None Gastrointestinal History: Reports: None Genitourinary History: Reports: None BILLING SERVICES MANAGER History: Reports: None Musculoskeletal History: Reports: None Other Musculoskeletal History: right rotator cuff tendinopathy bursitis Neurological History: Reports: None, Other (See Below) Other Neuro History: [place] Palsy Psychiatric History: Reports: Addiction, Anxiety Endocrine/Metabolic History: Reports: None Other Endocrine/Metabolic History: hyperglycemia Hematologic History: Reports: None Oncologic (Cancer) History: Reports: None Other Oncologic History: Breast cancer chemotherapy treatment Dermatologic History: Reports: None - Past Surgical History Head Surgeries/Procedures: Reports: None Female Surgical History: Reports: Breast Biopsy, Hysterectomy, Mastectomy, Other (See Below) Other Female Surgeries/Procedures: lumpectomy Oncologic Surgical History: Reports: Lumpectomy Other Oncologic Surgeries/Procedures: Lymph node dissection with multiple breast biopsies. Social & Family History - Tobacco Use Smoking Status *Q: Current Every Day Smoker - Caffeine Use Caffeine Use: Reports: Coffee, Soda - Alcohol Use Alcohol Use History: Yes Alcohol Use in Last Twelve Months: Yes Alcohol Use Comment: patient is not reliable for reporting ETOH use reliably. - Recreational Drug Use Recreational Drug Use: Yes Drug Use in Last 12 Months: Yes Recreational Drug Type: Reports: Marijuana/Hashish (rarely) ED ROS GENERAL - Review of Systems Review Of Systems: See Below Constitutional: Reports: No Symptoms HEENT: Reports: No Symptoms Respiratory: Reports: No Symptoms Cardiovascular: Reports: No Symptoms GI/Abdominal: Reports: Nausea. Denies: Abdominal Pain, Constipation, Diarrhea, Hematochezia, Melena, Vomiting : Reports: No Symptoms Musculoskeletal: Reports: No Symptoms Skin: Reports: No Symptoms Neurological: Reports: No Symptoms Psychiatric: Reports: Depression (upset about her dog). Denies: Hallucinations , Homicidal Ideation, Mood Lability, Suicidal Ideation Hematologic/Lymphatic: Reports: No Symptoms ED EXAM, GENERAL - Physical Exam Exam: See Below Exam Limited By: No Limitations General Appearance: Alert, Obese, Other (intoxicated) Eye Exam: Bilateral Eye: EOMI, PERRL Ears: Normal External Exam Nose: No: Nasal Deformity, Nasal Swelling, Nasal Drainage Throat/Mouth: Normal Lips, Normal Voice, No Airway Compromise Head: Atraumatic, Normocephalic Neck: Supple, Non-Tender, Full Range of Motion Respiratory/Chest: No Respiratory Distress, Lungs Clear, Normal Breath Sounds, No Accessory Muscle Use, Chest Non-Tender Cardiovascular: Regular Rate, Rhythm, No Edema, No Murmur Peripheral Pulses: 2+: Radial (L), Radial (R) GI/Abdominal: Normal Bowel Sounds, Soft, Non-Tender, No Distention (Female) Exam: Deferred Rectal (Female) Exam: Deferred Back Exam: No: CVA Tenderness (L), CVA Tenderness (R), Muscle Spasm Extremities: Normal Range of Motion, Non-Tender Neurological: Alert, Oriented Psychiatric: Normal Affect, Normal Mood Skin Exam: Warm, Dry, Intact, Normal Color Course - Vital Signs Last Recorded V/S: Last Vital Signs Temp 36.7 C 01/14/19 23:03 Pulse 81 01/15/19 01:42 Resp 18 01/15/19 01:42 BP 134/78 01/15/19 01:42 Pulse Ox 96 01/15/19 01:42 - Orders/Labs/Meds Orders: Active Orders 24 hr Category Date Time Status DRUG SCREEN, URINE [URCHEM] Stat Lab 01/14/19 23:13 Results Saline Lock Insert [OM.PC] Routine Oth 01/14/19 23:32 Ordered Labs: Laboratory Tests 01/14/19 01/14/19 01/15/19 Range/Units 23:13 23:20 00:02 WBC 6.2 (4.0-10.2) K/uL RBC 4.67 (3.77-5.09) M/uL Hgb 13.8 (11.7-15.5) g/dL Hct 42.1 (34.0-46.0) % MCV 90.1 (84.0-98.0) fL MCH 29.6 (28.2-33.3) pg MCHC 32.8 (31.7-36.0) g/dL RDW 14.5 H (11.2-14.1) % Plt Count 231 (150-350) K/uL Neut % (Auto) 45.8 (45.0-80.0) % Lymph % (Auto) 42.0 (10.0-50.0) % Kane % (Auto) 10.5 (2.0-14.0) % Eos % (Auto) 1.4 (0.0-5.0) % Baso % (Auto) 0.3 (0.0-2.0) % Neut # (Auto) 2.85 (1.40-7.00) K/uL Lymph # (Auto) 2.61 (0.50-3.50) K/uL Kane # (Auto) 0.65 (0.00-1.00) K/uL Eos # (Auto) 0.09 (0.00-0.50) K/uL Baso # (Auto) 0.02 (0.00-0.20) K/uL Sodium (136-145) mmol/L Potassium (3.5-5.1) mmol/L Chloride (98-107) mmol/L Carbon Dioxide (21.0-32.0) mmol/L BUN (7-18) mg/dL Creatinine (0.51-1.17) mg/dL Est Cr Clr Drug Dosing Estimated GFR (MDRD) mL/min Glucose (74-106) mg/dL Calcium (8.5-10.1) mg/dL Magnesium (1.8-2.4) mg/dL Total Bilirubin (0.2-1.0) mg/dL AST (15-37) U/L ALT (12-78) U/L Alkaline Phosphatase (46-116) IU/L Total Protein (6.4-8.2) g/dL Albumin (3.4-5.0) g/dL Specimen Type Urinblad Urine Color Light yellow Urine Appearance Clear Urine pH 6.0 (5.0-9.0) Ur Specific Calvin <= 1.005 (1.005-1.030) Urine Protein Negative (NEGATIVE) mg/dL Urine Glucose (UA) Negative (NEGATIVE) mg/dL Urine Ketones Negative (NEGATIVE) mg/dL Urine Occult Blood Negative (NEGATIVE) Urine Nitrite Negative (NEGATIVE) Urine Bilirubin Negative (NEGATIVE) Urine Urobilinogen 0.2 (0.2-1.0) E.U./dL Ur Leukocyte Esterase Negative (NEGATIVE) Urine RBC 0-5 /HPF Urine WBC 0-5 /HPF Ur Epithelial Cells Few /LPF Urine Bacteria Rare (NONE TO FEW) /HPF Urine Opiates Screen Negative (NEGATIVE) Ur Oxycodone Screen Negative (NEGATIVE) Ur EDDP (Meth Metab) Negative (NEGATIVE) Ur Barbiturates Screen Negative (NEGATIVE) Ur Tricyclics Screen Negative (NEGATIVE) Ur Amphetamine Screen Negative (NEGATIVE) U Methamphetamines Scrn Negative (NEGATIVE) Urine MDMA Screen Negative U Benzodiazepines Scrn Negative (NEGATIVE) U Cocaine Metab Screen Negative (NEGATIVE) U Marijuana (THC) Screen Positive H (NEGATIVE) Ethyl Alcohol (0.000-0.080) g/dL 01/15/19 Range/Units 00:02 WBC (4.0-10.2) K/uL RBC (3.77-5.09) M/uL Hgb (11.7-15.5) g/dL Hct (34.0-46.0) % MCV (84.0-98.0) fL MCH (28.2-33.3) pg MCHC (31.7-36.0) g/dL RDW (11.2-14.1) % Plt Count (150-350) K/uL Neut % (Auto) (45.0-80.0) % Lymph % (Auto) (10.0-50.0) % Kane % (Auto) (2.0-14.0) % Eos % (Auto) (0.0-5.0) % Baso % (Auto) (0.0-2.0) % Neut # (Auto) (1.40-7.00) K/uL Lymph # (Auto) (0.50-3.50) K/uL Kane # (Auto) (0.00-1.00) K/uL Eos # (Auto) (0.00-0.50) K/uL Baso # (Auto) (0.00-0.20) K/uL Sodium 146 H (136-145) mmol/L Potassium 3.6 (3.5-5.1) mmol/L Chloride 109 H (98-107) mmol/L Carbon Dioxide 24.8 (21.0-32.0) mmol/L BUN 11 (7-18) mg/dL Creatinine 0.59 (0.51-1.17) mg/dL Est Cr Clr Drug Dosing TNP Estimated GFR (MDRD) > 60 mL/min Glucose 107 H (74-106) mg/dL Calcium 8.4 L (8.5-10.1) mg/dL Magnesium 2.2 (1.8-2.4) mg/dL Total Bilirubin 0.3 (0.2-1.0) mg/dL AST 17 (15-37) U/L ALT 20 (12-78) U/L Alkaline Phosphatase 79 (46-116) IU/L Total Protein 7.3 (6.4-8.2) g/dL Albumin 3.6 (3.4-5.0) g/dL Specimen Type Urine Color Urine Appearance Urine pH (5.0-9.0) Ur Specific Calvin (1.005-1.030) Urine Protein (NEGATIVE) mg/dL Urine Glucose (UA) (NEGATIVE) mg/dL Urine Ketones (NEGATIVE) mg/dL Urine Occult Blood (NEGATIVE) Urine Nitrite (NEGATIVE) Urine Bilirubin (NEGATIVE) Urine Urobilinogen (0.2-1.0) E.U./dL Ur Leukocyte Esterase (NEGATIVE) Urine RBC /HPF Urine WBC /HPF Ur Epithelial Cells /LPF Urine Bacteria (NONE TO FEW) /HPF Urine Opiates Screen (NEGATIVE) Ur Oxycodone Screen (NEGATIVE) Ur EDDP (Meth Metab) (NEGATIVE) Ur Barbiturates Screen (NEGATIVE) Ur Tricyclics Screen (NEGATIVE) Ur Amphetamine Screen (NEGATIVE) U Methamphetamines Scrn (NEGATIVE) Urine MDMA Screen U Benzodiazepines Scrn (NEGATIVE) U Cocaine Metab Screen (NEGATIVE) U Marijuana (THC) Screen (NEGATIVE) Ethyl Alcohol 0.172 H (0.000-0.080) g/dL Meds: Medications Discontinued Medications Generic Name Dose Route Start Last Admin Trade Name Hesham PRN Reason Stop Dose Admin Sodium Chloride 1,000 mls @ 999 mls/hr 01/14/19 23:32 01/15/19 00:07 Normal Saline IV 01/15/19 00:32 999 mls/hr .BOLUS ONE Administration Thiamine HCl 100 mg/ Sodium 101 mls @ 202 mls/hr 01/14/19 23:47 01/15/19 00: 07 Chloride IV 01/14/19 23:48 202 mls/hr ONETIME ONE Administration Sodium Chloride 1,000 mls @ 500 mls/hr 01/15/19 01:00 Normal Saline IV 01/15/19 02:59 .BOLUS ONE Lactated Ringer's 1,000 mls @ 500 mls/hr 01/15/19 00:29 01/15/19 01:31 Ringers, Lactated IV 01/15/19 02:28 Not Given .BOLUS ONE Ondansetron HCl 4 mg 01/14/19 23:47 01/15/19 00:08 Zofran IVPUSH 01/14/19 23:48 Not Given ONETIME ONE Sodium Chloride 10 ml 01/14/19 23:32 01/15/19 00:08 Saline Flush FLUSH 10 ml ASDIRECTED PRN Administration Keep Vein Open - Re-Assessments/Exams Free Text/Narrative Re-Assessment/Exam: Intoxication. Plan at this time is to check labs and give IV fluids/zofran. Will discharge from ER once patient has shown improvement/family will come and pick her up. Free Text/Narrative Re-Assessment/Exam: 01/15/19 00:31 ETOH 0.17 Drug screen did not show any Benzos but was + for THC. Pt appearing to be improving. CBC/Chem performed. Na/Cl just above normal. Second NS IV bag changed to Ringer 's. Free Text/Narrative Re-Assessment/Exam: 01/15/19 09:20 Patient refused second liter of fluid. Discharged in improved condition. Picked up by family. Departure - Departure Time of Disposition: 01:45 Disposition: Home, Self-Care 01 Condition: Good Clinical Impression: Intoxication - Discharge Information *PRESCRIPTION DRUG MONITORING PROGRAM REVIEWED*: Not Applicable *COPY OF PRESCRIPTION DRUG MONITORING REPORT IN PATIENT CATARINO: Not Applicable Instructions: Alcohol Use Disorder, Alcohol Intoxication, [id number] Referrals: Julia Morejon MD [Primary Care Provider] - Forms: ED Department Discharge Additional Instructions: Home, rest, drink plenty of water. Evaluate your goals and current situation. Consider ETOH counseling/treatment and quitting all use of alcohol. Follow up as needed if you have problems. - My Orders Last 24 Hours: My Active Orders 01/14/19 23:13 DRUG SCREEN, URINE [URCHEM] Stat 01/14/19 23:32 Saline Lock Insert [OM.PC] Routine - Assessment/Plan Last 24 Hours: My Active Orders 01/14/19 23:13 DRUG SCREEN, URINE [URCHEM] Stat 01/14/19 23:32 Saline Lock Insert [OM.PC] Routine
[2019-01-14] MEDS ORDERED: Sodium Chloride 0.9% 10 ML Syringe FLUSH PRN (23:32)
[2019-01-14] MEDS ORDERED: Sodium Chloride 0.9% 1,000 ML IV ONE (23:32)
[2019-01-14] MEDS ORDERED: Ondansetron 4 MG/2 ML SDV IVPUSH ONE (23:47)
[2019-01-14] MEDS ORDERED: Thiamine 100 MG in Sodium Chloride 0.9% 100 ML IV ONE (23:47)
[2019-01-15 00:05] LABS: BARBITURATE SCREEN,URINE NEGATIVE (NEGATIVE); BENZODIAZEPINES SCREEN,URINE NEGATIVE (NEGATIVE); EDDP,URINE SCREEN NEGATIVE (NEGATIVE); TCA SCREEN,URINE NEGATIVE (NEGATIVE); THC SCREEN,URINE 50 NG/ML POSITIVE (NEGATIVE)
[2019-01-15 00:20] LABS: CHLORIDE,CL 109 mmol/L (98-107); SODIUM,NA 146 mmol/L (136-145)
[2019-01-15] MEDS ORDERED: Lactated Ringers 1,000 ML IV ONE (00:29)
[2019-01-15] MEDS ORDERED: Sodium Chloride 0.9% 1,000 ML IV ONE (01:00)
[2019-01-15 02:43] VITALS: BP 134/78; PULSE 81
== END 2019-01-15 01:50 | disposition home or self-care (01) ==
LOC: LL.ED 23:03
DX: F10.129 Alcohol abuse with intoxication, unspecified (principal); Y90.6 Blood alcohol level of 120-199 mg/100 ml; F17.200 Nicotine dependence, unspecified, uncomplicated; Z88.8 Allergy status to other drugs, medicaments and biological substances; Z79.899 Other long term (current) drug therapy; Z79.82 Long term (current) use of aspirin; Z90.710 Acquired absence of both cervix and uterus
CPT/HCPCS: 36415; 80053; 80305-QW; 81001; 83735; 85025; 96361; 96365; 99284-25; G0480; J3411; J7030; J7050

== ENCOUNTER 2019-04-23 07:11 | Day surgery (SDC) | payer MEDICARE, MEDICAID ==
--- OUTSIDE RECORDS SUMMARY | 2019-04-20 13:38 | XMSREPORT | Referral Summary ---
:1960 Author Organization [facility] Address [address] [place] [address] Care Team Providers Name Role Phone Elaine Gonzalez APRN-GRAPHIC USER INTERFACE DESIGNER Attributed Provider Elaine Gonzalez APRN-GRAPHIC USER INTERFACE DESIGNER Primary Care Provider Reason for Referral Transitions of Care (Routine) Status Reason Specialty Diagnoses / Referred By Referred To Procedures Contact Contact NOT REQUIRED Patient Diagnoses Screening for colon cancer Shiloh Felder, Chi Preference MD Felicia Salinasbon, [address] [place], [place] [address] [address] [place], [place] Phone: [phone] Phone: [facility] (Routine) Status Reason Specialty Diagnoses / Referred By Referred To Contact Procedures Contact New Request CARDIOLOGY Diagnoses Palpitations Brad Felder [facility] [address] [place] [address] [address] [place], [place] [phone] Phone: Scheduling Instructions This is an electronic referral. Reason for Visit Reason Comments Breast Cancer Follow up Encounter Details Date Type Department Care Team Description 04/03/2019 Office Visit [facility] Noble Castano ( Primary Dx); CLINIC MD Brad Malignant neoplasm of right breast in female, estrogen receptor positive, unspecified site of breast (HCC); [address] [facility] Raynaud's disease without gangrene; [address] [place] [address] [place] [address] [phone] Allergies Active Allergy Reactions Severity Noted Date Comments Diagnostic X-Ray Hives (High) High 06/30/2016 Not sure if contrast Materials was MRI of CT Hmg-Coa-R Inhibitors Other (Specify in 08/23/2016 seizure Comments) documented as of this encounter (statuses as of 04/18/2019) Medications Medication Sig Dispensed Refills Start End Date Status Date ibuprofen Take 200 mg 0 Active (ADVIL;MOTRIN-IB) by mouth 200 MG capsule Every 4 hours as needed lisinopril Take 1 90 tablet 4 02/03/20 Active (PRINIVIL, ZESTRIL) tablet (5 9 20 5 mg mg) by mouth tabletIndications: 1 time per Essential day hypertension omeprazole Take 1 90 capsule 3 Active (PRILOSEC) 20 mg capsule (20 9 capsuleIndications: mg) by mouth Gastroesophageal 1 time a day reflux disease in the without esophagitis morning ezetimibe (ZETIA) 10 Take 1 90 tablet 0 04/29/19 Active mg tablet (10 9 20 tabletIndications: mg) by mouth Mixed hyperlipidemia every night at bedtime metoprolol tartrate Take 1 60 tablet 11 Active (LOPRESSOR) 50 mg tablet (50 9 tabletIndications: mg) by mouth Essential 2 times a hypertension day acetaminophen-codein Take 1 60 tablet 0 Active e #3 (TYLENOL #3) tablet by 0 300-30 mg mouth Every tabletIndications: 4 hours as Bone pain needed for moderate pain aspirin-dipyridamole Take 1 180 capsule 4 06/11/19 Active (AGGRENOX) 25-200 mg capsule by 0 20 capsuleIndications: mouth 2 Transient cerebral times a day ischemia, unspecified type lansoprazole TAKE 1 15 capsule 4 04/03/19 Discontinued (PREVACID) 30 mg CAPSULE BY 9 20 (Patient changed capsuleIndications: MOUTH EVERY dose) Headache disorder MORNING ALPRAZolam (XANAX) Take 1 90 tablet 5 04/06/19 Discontinued 0.5 mg tablet (0.5 9 20 tabletIndications: mg) by mouth Anxiety 3 times a day lisinopril Take 10 mg 0 04/03/19 Discontinued (PRINIVIL, ZESTRIL) by mouth 1 20 (Duplicate) 10 mg tablet time per day documented as of this encounter (statuses as of 04/18/2019) Active Problems Problem Noted Date Raynaud's disease without gangrene 04/03/2019 Anxiety 02/04/2019 Intracranial aneurysm 04/17/2018 Essential hypertension 04/17/2018 Fibromyalgia 04/17/2018 Degenerative disc disease, lumbar 04/17/2018 Shoulder impingement, left 01/17/2018 Chronic pain of both shoulders 12/23/2017 Tear film insufficiency, bilateral 09/09/2017 History of TIA (transient ischemic attack) 06/13/2017 Dupuytren's disease of palm 05/07/2017 Smoking 12/28/2016 Bone pain 12/04/2016 Arthritis 12/04/2016 Fatigue 12/04/2016 Nevus 12/04/2016 Pseudophakia - Left 07/07/2015 Chalazion left upper eyelid - Left 07/01/2015 Senile nuclear sclerosis 07/01/2015 Pinguecula of both eyes - Both 07/01/2015 Pure hyperglyceridemia 04/26/2009 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 Palpitations documented as of this encounter (statuses as of 04/18/2019) Immunizations Name Administration Dates Next Due Influenza Vaccine,unspecified 11/06/2016, 12/08/2014 Pneumococcal Polysaccharide PPSV23 11/09/2011, 11/02/2009 TDAP 10/03/2018 documented as of this encounter Social History Tobacco Use Types Packs/Day Years Used Date Current Every Day Smoker Cigarettes 0.25 30 Smokeless Tobacco: Never Used Tobacco Cessation: Ready to Quit: Yes; Counseling Given: Yes Alcohol Use Drinks/Week oz/Week Comments Yes 2 Cans of beer 2.0 0 Rare/Occasional Alcohol Habits Answer Date Recorded How often do you have a drink containing alcohol? 2-4 times a month 2018 How many drinks containing alcohol do you have on a Not asked typical day when you are drinking? How often do you have six or more drinks on one Not asked occasion? Sex Assigned at Date Recorded Not on file Job Start Date Occupation Industry Not on file Not on file Not on file Travel History Travel Start Travel End No recent travel history available. documented as of this encounter Last Filed Vital Signs Vital Sign Reading Time Taken Comments Blood Pressure 136/72 04/03/2019 8:14 AM [employer] Pulse 72 04/03/2019 8:14 AM [employer] Temperature 36.8 C (98.2 F) 04/03/2019 8:14 AM [employer] Respiratory Rate 18 04/03/2019 8:14 AM [employer] Oxygen Saturation - - Inhaled Oxygen Concentration - - Weight 77.9 kg (171 lb 11.2 oz) 04/03/2019 8:14 AM [employer] Height 160 cm (5' 3") 04/03/2019 8:14 AM [employer] Body Mass Index 30.42 04/03/2019 8:14 AM [employer] documented in this encounter Functional Status Functional Status Response Date of Assessment Is the person deaf or does he/she have serious difficulty No 06/11/2017 hearing? Is this person blind or does he/she have difficulty No 06/11/2017 seeing even when wearing glasses? Do you have difficulty with walking, balance, climbing No 03/12/2019 stairs, or had a fall in the last 3 months? documented as of this encounter Progress Notes Brad Felder MD - 04/03/2019 8:21 AM CST HEMATOLOGY ONCOLOGY OUTPATIENT FOLLOWUP NOTE 04/03/2019 NAME: Vikram Diop is a 58yr old female Impression / Plan / CC / HPI PRIMARY DIAGNOSIS: Stage IIB (T1 N1 M0) infiltrating ductal carcinoma of the right breast diagnosed 04/15/02. ER: Neg. NV: Neg. HER2/sakina: Positive by FISH. CHIEF COMPLAINT: Pt.comes in to review the management of stage IIB breast cancer. Generalized pains. Severe fatigue. Numbness of the fingers. Unable to go back to work. Hot flashes. Back pain. Erratic BM's. PLAN: RV in6 monthswith labs.Yearly mammogram in January. PRESENT HISTORY: Mrs Diop is [id number], white, female patient who found a lump in herright axilla in November of 2001. She had surgery to remove the lump on April 15, 2002. The patient initially had a needle biopsy of the mass showing ductal carcinoma. She had lymph node removed onApril 15, 2002. The pathology showed a poorly differentiated carcinoma metastatic to lymph node. ER and NV were both negative. HER-2/sakina by immunohistochemistry was 2+ positive. FISH was negative. The patient had further workup to define the primary site of this cancer. At that time, mammogram did not show any abnormality that I am aware of. She had a PET scan done on May 04, 2002. The PET scan showed some abnormality in the right axilla consistent with benign post-surgical change. There was a small focus of high-level FDG uptake in the posterior right pelvis. This was nonspecific.This was felt to possibly represent nodular density of one of the ovaries. No other abnormalities were seen. In view of the abnormality on PET scan, the patient had a gynecology evaluation. She also had tumor markers. Tumor markers were normal. Gynecology evaluation was done, and a decision was made to perform total abdominal hysterectomy with bilateral salpingo-oophorectomy. This was performed on May 22, 2002, by Dr. Jarad Mane in [place]. The only abnormality was low-grade squamous intraepithelial lesion (mild dysplasia) and HPV effect on the cervix. The rest of the specimen was perfectly benign. There was a weakly proliferative endometrium. The patient also had gastroscopy and colonoscopy performed on April 29, 2002. They were benign. There was a gastric biopsy performed which was benign. The patient also had CT scans which did not reveal any abnormalities. The patient has refused all treatments offered to her including chemotherapy and radiation therapy. The patient had a mammogram on January 05, 2003. This showed a mass in the upper outer aspect ofboth breasts. Ultrasonography was recommended. Ultrasound showed 2 hypoechoic but solitary areasin the right breast. Biopsy was recommended. Left breast was normal. Also, the patient had a repeat PET scan on October 01, 2002, which was normal. The patient then had a needle localization biopsy of the right breast abnormalities. This was performed by Dr. Roberts in [place] on February 10, 2003. Five biopsies were obtained. One specimen contained 8-mm malignant nodule. This was a grade 3/3 infiltrating ductal carcinoma. No in situ component. The tumor extends to the inked surgical margin. No angiolymphatic invasion was detected. The patient again was offered chemotherapy and radiation therapy. She did not want any of these treatments when she saw me in July 2003.When seen on 10/25/03 she stated that she would follow my treatment recommendations.Unfortunately, when I examined her I found a large mass near the previous biopsy site in the Rt.breast.She saw who confirmed the finding. She had mammogram and needle biopsy disclosing recurrent caancer on 11/03/03.The path report reads: FINAL DIAGNOSIS: Right breast, needle biopsies (specimen #1); - Tumor Type: Adenocarcinoma, infiltrating ductal. - Tumor Grade Andrea: High grade, grade III (of III). a. Nuclear Grade: 3. b. Mitotic Grade: 3. c. Tubular Grade: 3. d. Total Andrea Score: 9 (of 9). - Tumor Size: Indeterminate, at least 7 mm in greatest dimension as measured from the slide. - In-situ Component: Not observed. - Surgical Margins: N/A. - Microcalcifications: Not observed. - Estimate of % Tumor in Biopsy: 80%. - Angiolymphatic Invasion: Not definitively demonstrated. - Other findings: focal necrosis. ERA:neg.PRA:neg.HER-2/sakina (FISH):Amplified >15. The mammogram showed a density in the Lt.breast.The biopsy of that showed a benign LN. The Pt.understands that she needs further surgery to remove the tumor from the Rt.breast.She would like to preserve the breast if at all possible. did suggest gaudencio-adjuvant chemo.and the Pt.agreed. She received the first cycle of chemo with Epirubicin and CTX on 11/26/03.She received Neupogen for 11 doses.After 7 doses she was still neutropenic.After 11 doses her ANC was 40,000.She had problems with bone pain and nausea.She only took Emend and Decadron for nausea.The second cycle was given on 12/10/03 and the 3rd cycle on 12/24/03. She elected to have a lumpectomy after the 3rd cycle of chemo. The lumpectomy was done by on 01/14/04.No post-op.problems. The pathology reads:Breast, right, ultrasound guided wire localization and excision, and right axillary lymph node dissection (specimens #1 and #2): - Tumor Type: Infiltrating ductal carcinoma. - Tumor Grade Andrea: High grade, III (of III). a. Nuclear Grade: 3 b. Mitotic Grade: 3 c. Tubular Grade: 3 d. Total [place] Score: 9 (of 9). - Tumor Size: 2.8 cm. - In-situ Component: None identified. - Surgical Margins: All surgical margins are negative for carcinoma. The nearest margin is the deep margin; 0.6 cm to tumor. The anterior margin is 1.5 cm from tumor, the inferior margin is 3 cm from tumor, and the superior margin is 3.2 cm from tumor. Medial and lateral margins are widely negative. - Angiolymphatic Invasion: None identified. - Breast Tissue Away From Tumor: No atypical ductal hyperplasia or in situ carcinoma identified. - Other Findings: None. - Axillary Lymph Node Involvement: a. Total Number of Nodes Examined: 17 b. Total Number of Positive Nodes: 0/17 The Pt.has social problems and agreed to only one more chemo,after which she wants to do her RT.She knows that I recommend another 4 chemos.with a taxane but states that she cannot afford it. She received the 4th cycle of Epirubicin/CTX on 02/21/04.She tolerated it well. She then elected to receive RT.She has completed her course of RT to the Rt.breast.he has received atotal of 5,000 cGy in 25 fractions of 250 cGy to the Rt.breast,from 03/14/04 till 04/19/04. She had the port removed on 05/04/04. She was admitted to [facility] for a few hours on 06/05/04 for palpitations.Nothing serious was seen. She has opted not to receive any further chemotherapy.She has agreed to receive Herceptin as an adjuvant therapy for one year.She has received the first dose ( loading dose) of Herceptin on 06/09/04.Thiswas followed by a weekly dose on and 06/23/04.It was well tolerated.Some minimal nausea,no emesis.Severe fatigue. On 06/30/04 she has started the higher dose of Herceptin at 390 mg IV q 3 weeks without any difficulties. She has developped a large cyst in the rt.breast.She wants plastic surgery to fix her breast,but sheis not sure that she wants it now.On 12/26/04 the dose of Herceptin was rounded to 400 mg IV q 3 weeks.The serial 2 D Echos have been stable.She received the last dose of Herceptin on 06/06/05. In January 2007 she complained of Rt.sided SINCLAIR,blurred vision,nausea. She also feels some LUQ discomfort,which might be related to some wt.gain. When seen on 11/02/09 she was feeling well.No new symptoms or problems. She had atypical chest pain in December 2010.She had a cardiac work up includng a stress test.No evidence of CAD.The rest echo showed an EF of 60%.No further problems after that. When seen on 06/27/10 she was feeling well.She has a chronic cough with clear phlegm production,most likely caused by her smoking.No SOB.No further CP. In February 2011 she noticed a lump in the Lat.aspect of the Lt.breast.It is tender to palpation.No other anomalies.The tenderness radiates to the nipple. She came on 03/26/11 to evaluate that lump.I could not definitely confirm the presence of that lump.She also complained of a recurent infected cyst in the Lt.groin area.No other issues.She was working on smoking cessation and has definitely decreased her cigarettes consumption. When seen on 06/27/11 she complained of tenderness over the Rt.post upper ribs.She also complained ofdecreased ROM of the Rt.shoulder.No other new symptoms or problems.The lab work and CXR were Nl. She was lost to F/U after the visit on 06/27/11. She had a seizure on 06/30/16. Her evaluation was negative. She had a brain MRI scan which was normal. The cause of the Seizure was felt to be Aggrenox. Apparently she received the generic and had some sort of allergy to it,causing the seizure. She tolerates the brand Aggrenox. She called in October 2016 asking for an apt. She had developed pains all over ,which she felt caused by Fibromyalgia.She was fatigued. She had numbness in the fingers caused by carpal tunnel syndrome. I did recommend a CT scan of the chest/abdomen/pelvis that she could do in [place]. I also recommended a DEXA scan. I gave her a return apt in [place] on 12/28/16. When seen on 12/28/16 for re-evaluation of her breast cancer,Mrs Apple was feeling better. Her achyness had improved. She was very happy with the results of her scans. She said that she would try Accupuncture. She tried the nicotine patches to help her quit smoking, These were causing severe nausea. She was given a return apt in 1 year. She was instructed to call me for any concerns. She had a terrific SINCLAIR in March caused by a hypertensive crisis and was in the hospital for 3 days. She is now followed by Dr Gil in [place]. She was found to have a very small, less than 3 mm,saccular aneurysm of the Rt middle cerebral artery. (MRA dated on 04/08/17). No intervention planned.She has not been able to work since that time. She had an abnormal stress test on 05/30/17. She then had an cardiac cath on which was normal. When seen on 08/23/17 she complained of a constellation of symptoms. She had abdominal cramps,frequent diarrhea, chronic dizziness,fatigue. She was nauseated most of the time. She had problems with depression. She was dyspneic on exertion. She had pain in her shoulders and legs. She did not have the strength or stamina to go back to work. She had weakness and numbness,most likely a residual from the chemo received in the past to treat her breast cancer.I did not see any evidence of recurent breast cancer. Her lab work on 11/28 was normal. Putting the entire picture together,I did not think that she was fit to go back to work any longer. I did sign her disability paper. She had a CT scan of the chest on 12/30/17 showing: IMPRESSION CHEST: 1. Normal enhanced CT Chest examination. 2. Postoperative changes to the right breast and chest wall. 3. Incidental note of hepatic steatosis. On 01/06/18 she had a brain MRA showing: IMPRESSION: Stable 2 mm saccular aneurysm at the distal right M1 segment. No new aneurysm elsewhere. Since she had pain in the shoulders on ,she had MRI scan of both shoulders on . These showed: LEFT SHOULDER: IMPRESSION: 1. Tendinosis in the distal supraspinatus tendon. 2. Mild degenerative AC joint arthrosis. RIGHT SHOULDER: IMPRESSION: 1. Minimal bursal sided fraying in the distal insertional fibers of the supraspinatus without focal tear identified. 2. Mild to moderate degenerative AC joint arthrosis. On 01/13/18 she had her mammogram showing: IMPRESSION: 1. Mammography negative for malignancy. Yearly screening mammography recommended for followup. 2. Postsurgical changes on the right compatible with fibrosis with no significant interval change compared to most recent examinations and with slightly decreased prominence compared with 2012 examination. 3. Benign-appearing nodules suggested. On 03/28/18 Mrs Diop was seen for re-evaluation of her breast cancer. We did review her mammogram and MRI scans. She complained of unexpected wt gain. She had night sweats. She had chills. She wondered if these could be caused by Metoprolol. Her energy level was down in the winter. She was not sleeping well. She had interrupted sleep. She was suffering from seasonal depression.Her vision was declining. She wondered if she could have cataracts. She had some RAM. She had frequent soft BM's. I was wondering if she could have gluten intolerance. This was going on since 2018. She had bloating of theRt side of the abdomen after eating. She had pain in the Rt flank after eating. This pain would thenmove to the Lt flank. Her LLE was weak and numb. It would give out on her. She had lower back pain.She had daily SINCLAIR.Her feet were numb, She would get blue toes frequently. She had cold intolerance. On exam,she had tenderness of the lower spine. No DTR. The breast exam revealed the Rt breast to be post- lumpectomy. No recurrent masses. The Lt breast was Nl. Her lab work showed the CBC to be unremarkable. The chemistry panel was WNL. The A1c was Nl at 5.4 %. All the tests for gluten intolerance came back negative. I ordered an MRI scan of the lumbar spine to evaluate her lower back pain. I gave her a return apt in September 2018 with lab work. On 10/03/18 Mrs Diop was seen for re-evaluation of breast cancer. She was able to loose 5 lb on a diet. She had frequent hot flashes with diaphoresis. She had chills after the hot flashes.She had night sweats. She was fatigued. Not sleeping well. Severe anxiety. She requested to increase the Xanax0.5 mg bid to tid. I felt that this would be safe and I did send a new prescription to her pharmacy.She had blurry vision caused by cataracts. She had SOB and cough. She had clear phlegm. She felt some CP while walking. She continued to smoke about 5 cigarettes/day. Her BM's were erratic. She had a colonoscopy scheduled in [place]. She complained of back pain and was referred to the pain clinic for it. On exam,the Rt breast had a lumpectomy. No recurrent masses. The Lt breast was Nl. She had a few rhonchi on chest auscultation. I again counseled her to quit smoking. To no avail. Her lab work showeda WBC of 7.2 with an ANC of 4.8; Hgb 13.8 g/dL;Plt 260,000. Her chemistries showed a glucose of 106 mg/dL; otherwise they were WNL. Iron was 92 mcg/dL with a TIBC of 459 mcg/dL and a saturation of 20 %. Retic Hgb was 32.9 pg. Cholesterol was 216 mg/dL;HDL 36 mg/ dL;LDL 102 mg/dL;triglycerides 388 mg/dL. Her tumor marker,the CA 15-3 was Nl at 9.1 U/mL. B12 level was borderline at 293 pg/mL;TSH was 1.18 uIU/mL. I recommended to continue observation for the breast cancer. I gave her a return apt in March 2019 with lab work and a chest CT scan on the base of her respiratory symptoms and continued smoking. She had a chest CT scan on 03/24/19 showing: IMPRESSION: 1. No evidence of intrathoracic metastases 2. Postsurgical changes right breast and right axilla 3. No significant change from 12/30/2017 or 12/24/2016 On 04/03/19 Mrs Diop was seen for re-evaluation of her breast cancer. She had multiple complaints including an unexpected wt gain,palpitations causing dizziness. She thinks these started after she stopped Atenolol. Pain in the Rt ear. Fatigue. Cold intolerance. Symptoms of Raynaud's disease. Forgetfulness. RAM. Chest pain at times.Mild edema of the LLE. Nocturia x 1. Rt sided SINCLAIR. Chronic lower back pain. On exam,the Rt breast was S/P lumpectomy. No recurrent masses.The Lt breast was Nl. Her spine was tender in the lumbar region. Her lab work showed a Nl CBC. Glucose 101 mg/dL.Other chemistries were WNL. Her cholesterol was Nl. Triglycerides were mildly elevated at 263 mg/dL. CA 15-3 was 8.8 U/mL. I did review her CT scan with her. I did obtain an EKG which showed a sinus rhythm with a 1st degree AV block. I did suggest an event monitoring. I gave her a return apt in 6 months with lab work. Cancer History Stage IIB adenocarcinoma of the Rt.breast diagnosed on 04/15/02.ER neg,NV neg and HER-2/sakina neg by FISH.S/P incomplete lumpectomy and Rt.axillary LN biopsy.Progression on 10/26/03.Needle biopsy:ER neg,NV neg,HER-2/sakina + by FISH.S/ P 3 cycles of gaudencio-adjuvant CTX/Epi and 1 cycle of adjuvant CTX/Epi.S/P RT.On Herceptin from 06/09/04 till 06/06/05.Initial dose was weekly,on 390 mg IV q 3 weeks from 06/30/04.(Dose rounded to 400 mg IV q 3 weeks) till 06/06/05. Large cyst in the Rt.breast. Lump in the Lt.breast per Pt.(03/26/11).I am unable to confirm. Recurrent infected cyst in the Lt.groin.(03/26/11). Decreased Rt.shoulder ROM.(06/27/11). Previous radiation therapy: Rt.breast from 03/14/04 till 04/19/04 (5,000 cGy in 25 fractions of 200 cGy). Past Medical and Surgical History: PAST MEDICAL HISTORY: Abnormal Pap test in October 2001 with high-grade squamous intraepitheliallesion (moderate dysplasia) with HPV effect and chronic cervicitis. 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 Questionable CAD. Anxiety disorder. Naevi. PAST SURGICAL HISTORY: 1. Biopsies as mentioned in history of present illness. 2. Total abdominal hysterectomy with bilateral salpingo-oophorectomy performed on May 22, 2002. 3. Resection of intraepithelial lesion of the cervix. 4. Rt. Breast lumpectomy. 5. Cataract surgery on the Lt. In 2015. 6. Bilateral carpal tunnel surgery in July 2016. FAMILY HISTORY: Her mother is alive at 84. She had Ca cervix.Liver problems. Her fatherdied at 84 from MRSA. He had CAD. There is DM on his side of the family. She has 5 brothers and 2 sisters A&W. No cancer. She has 3 daughters and 2 sons. One son had melanoma. One daughter had cervical cancer. Many different types of cancer on her mother's side of the family.Colon cancer. Breast cancer. SOCIAL HISTORY: since 1988. Lives alone. Workedin [employer] at [employer] in [place]. On disability since March 2017 due to HTN and cerebral aneurysm. She has been smoking since age 13,about 1/2 ppd. (22 pack.year).Down to 1 ppw in 2018. No excess alcohol.Occ glass of wine. ECOG Performance Status 1 Medications Current Outpatient Medications Medication Sig Dispense Refill aspirin-dipyridamole (AGGRENOX) 25-200 mg capsule Take 1 capsule by mouth 2 times a day 180 capsule 4 acetaminophen-codeine #3 (TYLENOL #3) 300-30 mg tablet Take 1 tablet by mouth Every 4 hours as needed for moderate pain 60 tablet 0 metoprolol tartrate (LOPRESSOR) 50 mg tablet Take 1 tablet (50 mg) by mouth 2 times a day 60 tablet 11 lisinopril (PRINIVIL, ZESTRIL) 5 mg tablet Take 1 tablet (5 mg) by mouth 1 time per day 90 tablet 4 omeprazole (PRILOSEC) 20 mg capsule Take 1 capsule (20 mg) by mouth 1 time a day in the morning 90 capsule 3 ezetimibe (ZETIA) 10 mg tablet Take 1 tablet (10 mg) by mouth every night at bedtime 90 tablet 0 ALPRAZolam (XANAX) 0.5 mg tablet Take 1 tablet (0.5 mg) by mouth 3 times a day 90 tablet 5 ibuprofen (ADVIL;MOTRIN-IB) 200 MG capsule Take 200 mg by mouth Every 4 hours as needed No current facility-administered medications for this visit. Allergies Allergies Allergen Reactions Contrast [Diagnostic X-Ray Materials] Hives (High) Not sure if contrast was MRI of CT Hmg-Coa-R Inhibitors Other (Specify in Comments) seizure Problem List Patient Active Problem List Diagnosis Anxiety Intracranial aneurysm Essential hypertension Fibromyalgia Degenerative disc disease, lumbar Shoulder impingement, left Chronic pain of both shoulders Tear film insufficiency, bilateral History of TIA (transient ischemic attack) Dupuytren's disease of palm Smoking Bone pain Arthritis Fatigue Nevus Pseudophakia - Left Chalazion left upper eyelid - Left Senile nuclear sclerosis Pinguecula of both eyes - Both Pure hyperglyceridemia Palpitations Bowman's palsy Malignant neoplasm of female breast (HCC) Social History Social History Tobacco Use Smoking status: Current Every Day Smoker Packs/day: 0.25 Years: 30.00 Pack years: 7.50 Types: Cigarettes Smokeless tobacco: Never Used Substance Use Topics Alcohol use: Yes Alcohol/week: 2.0 standard drinks Types: 2 Cans of beer per week Frequency: 2-4 times a month Drug use: No Social History Substance and Sexual Activity Drug Use No Famly History Family History Problem Relation Age of Onset Cataracts Mother Amblyopia Neg Hx Blindness Neg Hx Diabetes Neg Hx Glaucoma Neg Hx Macular Degeneration Neg Hx Retinal Detachment Neg Hx Strabismus Neg Hx ROS General: no chills, fatigue, no fever, no unexpected weight gain.No night sweats. Psychological: mood and affect are normal. No depressive symptoms. No insomnia. Forgetful. Ophthalmic: no blurry vision, no decreased vision. No diplopia. ENT:no mouth sores, no thrush, no epistaxis, no sinus congestion, no sore throat.Rt ear pain. Auditory:no hearing loss.No ringing in the ears. Allergy and Immunology: no allergies. No sneezing. No itchy eyes. Endocrine: no heat intolerance. Cold intolerance. No polydipsia. No polyuria. Breast: no lumps, no skin changes, no tenderness. Respiratory: no cough, no shortness of breath at rest, no wheezing. Cardiovascular: chest pain, dyspnea on exertion, Lt lower extremity edema. She has palpitations and dizziness. Raynaud's symptoms. Gastrointestinal: no nausea, no vomiting, no diarrhea, no constipation, no abdominal pain, no black or bloody bowel movements. Heme: no bleeding, no bruising. Genito-Urinary: no dysuria, no trouble voiding, no hematuria. Nocturia : 1. Musculoskeletal: no joint pain, no muscle pain, no muscular weakness. Chronic back pain. Lymphatics: no lymph node enlargement noted by patient. Neurological: no weakness, no numbness, no tingling, Headache on the Rt.. Dermatological: no rash, no skin changes. No itching. Immunologic:no frequent infections. Physical Exam BP 136/72 Pulse 72 Temp 98.2 F (36.8 C) Resp 18 Ht 1.6 m (5' 3") Wt 77.9 kg (171 lb 11.2 oz) BMI 30.42 kg/m2 Body mass index is 30.42 kg/m. Body surface area is 1.86 meters squared. General: Comfortable, no obvious distress. Well nourished,well developed. Pleasant and cooperative. Appearing the age of 58. Eyes: Sclera anicteric, no pallor. Mouth: No oral lesions or thrush. Neck:supple. No masses. No enlargement of the thyroid. The trachea is midline. CV: Regular rhythm, normal rate. No audible murmurs on auscultation. Resp: Clear to auscultation bilaterally, equal air entry bilaterally, good effort. No dullness to percussion. Not using the accessory muscles of breathing. Breasts: The Rt breast had a lumpectomy. Ne recurrent masses. The Lt breast is Nl. Abdomen: Soft, non tender, non distended. No hepatomegaly, no splenomegaly, no guarding, no rebound. Skin: No rashes, lesions, or subcutaneous nodules, no petechiae. Psych: Alert and orientated x 3. Appropriate affect, good insight. Extremities: No peripheral edema, no tenderness. No clubbing of the finger nails. No cyanosis. Finger nails appear intact. Musculoskeletal: Appropriate muscle bulk and strength. No deformities of the skeleton. Tenderness onpercussion of the lumbar spine. Lymphatic: No cervical, no supraclavicular, no axillary, no inguinal lymphadenopathy. Neuro: Moves all four extremities. No focal deficits on limited exam. Normal gait. No obvious cranial nerve deficits. Deep tendon reflexes are absent. Labs/Imaging Orders Only on 03/24/2019 Component Date Value Ref Range Status Glucose 03/24/2019 101* 70 - 99 mg/dL Final BUN 03/24/2019 11 6 - 22 mg/dL Final Creatinine 03/24/2019 0.74 0.60 - 1.10 mg/dL Final BUN/Creatinine Ratio 03/24/2019 14.9 10.0 - 25.0 Final Sodium 03/24/2019 141 136 - 145 meq/L Final Potassium 03/24/2019 4.4 3.5 - 5.1 meq/L Final Chloride 03/24/2019 107 98 - 109 meq/L Final CO2 03/24/2019 23 20 - 29 meq/L Final Anion Gap with K 03/24/2019 15 6 - 20 meq/L Final Calcium 03/24/2019 9.0 8.5 - 10.5 mg/dL Final Protein Total 03/24/2019 6.7 6.0 - 8.3 g/dL Final Albumin 03/24/2019 4.1 3.2 - 4.6 g/dL Final Alkaline Phosphatase 03/24/2019 68 40 - 150 U/L Final AST - SGOT 03/24/2019 14 5 - 34 U/L Final ALT - SGPT 03/24/2019 15 0 - 55 U/L Final Bilirubin Total 03/24/2019 0.4 0.2 - 1.2 mg/dL Final Age 0203/24/2019 58 Years Final eGFR Non- 03/24/2019 80 >=60 mL/min/1.73m2 Final eGFR 03/24/2019 >90 >=60 mL/min/1.73m2 Final Fasting 03/24/2019 Yes Yes, No, Unknown Final LDH Total 03/24/2019 182 125 - 245 U/L Final CA 15-3 03/24/2019 8.8 0.0 - 31.0 U/mL Final Cholesterol 03/24/2019 164 <200 mg/dL Final Triglyceride 03/24/2019 263* <150 mg/dL Final HDL 03/24/2019 41 >=40 mg/dL Final LDL 03/24/2019 70 <=100 mg/dL Final Fasting 03/24/2019 Yes Yes, No, Unknown Final WBC 03/24/2019 7.3 4.0 - 11.0 K/uL Final RBC 03/24/2019 4.62 3.80 - 5.30 M/uL Final Hemoglobin 03/24/2019 13.2 11.5 - 15.8 g/dL Final Hematocrit 03/24/2019 41.2 35.0 - 45.0 % Final MCV 03/24/2019 89.2 80.0 - 98.0 fL Final MCH 03/24/2019 28.6 25.5 - 34.0 pg Final MCHC 03/24/2019 32.0 31.5 - 36.5 g/dL Final RDW-CV 03/24/2019 14.8 11.5 - 15.5 % Final RDW-SD 03/24/2019 46.6 35.5 - 50.0 fl Final Platelet Count 03/24/2019 239 140 - 400 K/uL Final MPV 03/24/2019 11.4 8.5 - 12.0 fL Final Seg Neut Absolute 03/24/2019 4.9 1.8 - 8.0 K/uL Final Lymphocytes Absolute 03/24/2019 1.6 0.8 - 4.1 K/uL Final Monocytes Absolute 03/24/2019 0.7 0.0 - 1.0 K/uL Final Eosinophils Absolute 03/24/2019 0.1 0.0 - 0.7 K/uL Final Basophil Absolute 03/24/2019 0.0 0.0 - 0.2 K/uL Final Neutrophils Abs. (Segs and Bands) 03/24/2019 4,900 /uL Final Neutrophils Percent 03/24/2019 67.7 % Final Lymphocytes Percent 03/24/2019 21.5 % Final Monocytes Percent 03/24/2019 9.2 % Final Eosinophils Percent 03/24/2019 1.1 % Final Basophil Percent 03/24/2019 0.5 % Final I have reviewed laboratory studies myself. EXAM: CT CHEST WITHOUT CONTRAST INDICATION:ICD-10 F17.200 Smoking ICD-10 C50.911 Malignant neoplasm of right breast in female, estrogen receptor positive, unspecifiedsite of breast ICD-10 Z17.0 Malignant neoplasm of right breast in female, estrogen receptor positive, unspecified site of breast smoking, malignant neoplasm of right breast i COMPARISON(S): 12/30/2017 and 12/24/2016 IMPRESSION: 1. No evidence of intrathoracic metastases 2. Postsurgical changes right breast and right axilla 3. No significant change from 12/30/2017 or 12/24/2016 TECHNIQUE: Multislice acquisitions with 3.75 mm reconstructions through the chest without intravenous contrast. Additional reconstructions in coronal and sagittal planes FINDINGS: Minor parenchymal scarring in both lung bases, slightly more so left than right. No intrapulmonary nodule. No significantly enlarged hilar or mediastinal lymph nodes. No axillary adenopathy or mass. Surgical clips right axilla. Postsurgical changes lateral right breast. Images through the upper abdomen show normal visualized liver, spleen and adrenals. No destructive bone lesion. I have reviewed images myself. Total time of service: 40 minutes Time spent counseling/coordination of care: [address] scan, plan of care and answermultiple questions. Brad Felder MD documented in this encounter Plan of Treatment Date Type Specialty Care Team Description 04/24/2019 Office Visit Ophthalmology Wilfred Griffin, OD [address] [place] [address] [phone] 04/28/2019 Office Visit Family Practice Elaine Gonzalez, ENVIRONMENTAL LAWYER-GRAPHIC USER INTERFACE DESIGNER [address] [place] [address] [phone] 05/07/2019 Office Visit CARDIOLOGY Cesario Alvarenga MD [address] [place] [id number] [phone] Name Type Priority Associated Diagnoses Order Schedule COMPLETE BLOOD COUNT WITH Lab Routine Palpitations Expected: 09/25/2019 DIFFERENTIAL Malignant neoplasm of (Approximate), right breast in female, Expires: 05/03/2020 estrogen receptor positive, unspecified site of breast (HCC) COMPREHENSIVE METABOLIC Lab Routine Palpitations Expected: 09/25/2019 PANEL Malignant neoplasm of (Approximate), right breast in female, Expires: 05/03/2020 estrogen receptor positive, unspecified site of breast (HCC) LDH TOTAL Lab Routine Palpitations Expected: 09/25/2019 Malignant neoplasm of (Approximate), right breast in female, Expires: 05/03/2020 estrogen receptor positive, unspecified site of breast (HCC) CA 15-3 (BREAST CANCER) Lab Routine Palpitations Expected: 09/25/2019 Malignant neoplasm of (Approximate), right breast in female, Expires: 05/03/2020 estrogen receptor positive, unspecified site of breast (HCC) ANTI NUCLEAR ANTIBODY Lab Routine Palpitations Expected: 09/25/2019 SCREEN WITH REFLEX Malignant neoplasm of (Approximate), right breast in female, Expires: 05/03/2020 estrogen receptor positive, unspecified site of breast (HCC) Name Type Priority Associated Diagnoses Order Schedule CLINIC REFERRAL Referral Routine Palpitations Ordered: 04/03/2019 CARDIOLOGY ONE CHART CLINIC REFERRAL Referral Routine Screening for colon Ordered: 04/03/2019 ENDOSCOPY NON ONE CHART cancer documented as of this encounter Results EKG (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) EKG WAVEFORM [facility]IE [facility] Sinus rhythm with 1st degree A-V block Otherwise normal ECG Ventricular Rate: 66 BPM Atrial Rate: 66 BPM P-R Interval: 232 ms QRS Duration: 84 ms Q-T Interval: 424 ms QTc Calculation(Bazett): 444 ms Calculated P Botkins: 48 degrees Calculated R Botkins: 37 degrees Calculated T Botkins: 76 degrees Specimen Narrative Performed At Performing Organization Address City/State/Zipcode Phone Number ZOIE KLINE documented in this encounter Visit Diagnoses Diagnosis Palpitations - Primary Malignant neoplasm of right breast in female, estrogen receptor positive, unspecified site of breast (HCC) Raynaud's disease without gangrene Screening for colon cancer Special screening for malignant neoplasms, colon documented in this encounter
[~2019-04-23 07:11] MED LIST changes: +Propofol 200 MG/20 ML SDV ONE
--- NOTE | 2019-04-23 08:09 | PCM.PN ---
- General Info Date of Service: 04/23/19 - Review of Systems Systems Review Comment:: 58-year-old female here for colonoscopy. It is been approximately 10 years since her last colon exam. She has noted a slight increase in the frequency of her bowel movements recently. The patient does have a personal history of breast cancer. She is medically stable to proceed today. Her recent history and physical is carefully reviewed and no significant changes are noted. I discussed the proposed colonoscopy with the patient. Risks such as but not limited to bleeding and GI injury were reviewed. She agrees to proceed. - Patient Data Vitals - Most Recent: Last Vital Signs Temp 98.0 F 04/23/19 07:49 Pulse 94 04/23/19 07:49 Resp 66 H 04/23/19 07:49 BP 142/84 H 04/23/19 07:49 Pulse Ox 98 04/23/19 07:49 Weight - Most Recent: 77.111 kg Med Orders - Current: Current Medications Lactated Ringer's (Ringers, Lactated) 1,000 mls @ 125 mls/hr IV ASDIRECTED KIRIT Sodium Chloride (Saline Flush) 10 ml FLUSH ASDIRECTED PRN PRN Reason: Keep Vein Open Discontinued Medications Propofol (Diprivan 20 Ml) Confirm Administered Dose 400 mg .ROUTE .STK-MED ONE Stop: 04/23/19 06:58 Sepsis Event Note - Focused Exam Vital Signs: Vital Signs Temp Pulse Resp BP Pulse Ox 04/23/19 07:49 98.0 F 94 66 H 142/84 H 98 Date Exam was Performed: 04/23/19 Time Exam was Performed: 08:08 - Problem List Review Problem List Initiated/Reviewed/Updated: Yes - My Orders Last 24 Hours: My Active Orders 04/23/19 07:00 Patient Status [ADT] Routine Peripheral IV Care [RC] . DIRECTED Verify Patient Consent Obtain [RC] ASDIRECTED Lactated Ringers [Ringers, Lactated] 1,000 ml IV ASDIRECTED Sodium Chloride 0.9% [Saline Flush] 10 ml FLUSH ASDIRECTED PRN Peripheral IV Insertion Adult [OM.PC] Routine - Assessment Assessment:: colon cancer screening History of breast cancer - Plan Plan:: colonoscopy
--- NOTE | 2019-04-23 08:39 | PCM.OPNOTE ---
- General Post-Op/Procedure Note Date of Surgery/Procedure: 04/23/19 Operative Procedure(s): colonoscopy with polypectomy Findings: small rectal polyps Colon otherwise normal Pre Op Diagnosis: colon cancer screening Post-Op Diagnosis: colon polyps Anesthesia Technique: MAC Primary Surgeon: Yordy Burns Pathology: Rectal Polyp EBL in mLs: 0 Complications: None Condition: Good
--- NOTE | 2019-04-23 11:52 | OR ---
Date of Procedure: 04/23/2019 PREOPERATIVE DIAGNOSES: 1. Colon cancer screening. 2. History of breast cancer. POSTOPERATIVE DIAGNOSES: Colon polyps. OPERATIONS PERFORMED: Colonoscopy with polypectomy. INDICATIONS FOR SURGERY: This is a 58-year-old female, who has a known personal history of breast cancer, comes today for screening colonoscopy. It has been approximately 10 years since her last colon exam. FINDINGS: In the rectum, at the 12 cm level, there is a 7-mm sessile polyp. At approximately the 10 cm level, there is a 3-mm sessile polyp. The remainder of the colon appears normal. DESCRIPTION OF PROCEDURE: The patient was taken to the operating room. She was given intravenous sedation, and with her in the left lateral decubitus position, digital rectal exam was performed showing no rectal masses. The Olympus colonoscope was inserted into the rectum and retroflexed examination of the rectal canal was performed. The scope was then carefully advanced under direct visualization into the proximal rectum where the above-described polyp was identified. This was removed with a cautery snare and retrieved into a polyp trap. A very small polyp just distal to the larger one was destroyed with the use of the cautery snare. The scope was then slowly advanced under direct visualization through the entire length of the colon until the cecum was reached. Cecal acquisition was confirmed by noting the normal internal cecal anatomy including the appendiceal orifice and ileocecal valve. After carefully examining the cecum, the scope was slowly withdrawn sequentially re-examining the colonic segments until the entire colon and rectum had been fully examined. The scope was removed and the patient was taken from the operating room in satisfactory condition. ESTIMATED BLOOD LOSS: 0. COMPLICATIONS: None. PROGNOSIS: Good. LIBERTY Burns MD /[id number]
[2019-04-23 14:58] VITALS: BP 144/83; PULSE 73
== END 2019-04-23 09:59 | disposition home or self-care (01) ==
LOC: LL.SDS 07:11
PROVIDERS: ATTEND Surgery
DX: Z12.11 Encounter for screening for malignant neoplasm of colon (principal); K62.1 Rectal polyp; K63.5 Polyp of colon; F17.210 Nicotine dependence, cigarettes, uncomplicated; F41.9 Anxiety disorder, unspecified; I10 Essential (primary) hypertension; Z91.041 Radiographic dye allergy status; Z88.8 Allergy status to other drugs, medicaments and biological substances; Z79.82 Long term (current) use of aspirin; Z79.899 Other long term (current) drug therapy; Z98.890 Other specified postprocedural states; Z85.3 Personal history of malignant neoplasm of breast; Z92.21 Personal history of antineoplastic chemotherapy; Z92.3 Personal history of irradiation
CPT/HCPCS: J2704; J7120

== ENCOUNTER 2020-11-10 09:09 | Day surgery (SDC) | payer MEDICARE, MEDICAID ==
[~2020-11-10 09:09] MED LIST changes: +Midazolam 1 MG/ML 2 ML SDV ONE
[2020-11-10] MEDS ORDERED: Lidocaine 2% 5 ML SDV ONE (10:30)
[2020-11-10] MEDS ORDERED: Glycopyrrolate 0.2 MG/ML SDV IVPUSH ONE (10:30)
--- NOTE | 2020-11-10 10:32 | PCM.HP.2 ---
H&P History of Present Illness - General Date of Service: 11/10/20 Admit Problem/Dx: Admission Diagnosis/Problem Admission Diagnosis/Problem Gastric reflux Source of Information: Patient, Old Records History Limitations: Reports: No Limitations - History of Present Illness Initial Comments - Free Text/Narative: Here for EGD for eval of Fe Def Anemia - Related Data Allergies/Adverse Reactions: Allergies Allergy/AdvReac Type Severity Reaction Status Date / Time atorvastatin calcium Allergy Muscle Verified 11/10/20 10:07 [From Lipitor] Aches fenofibrate Allergy Dizziness Verified 11/10/20 10:07 sumatriptan [From Imitrex] Allergy Rash Verified 11/10/20 10:07 sumatriptan succinate Allergy Rash Verified 11/10/20 10:07 [From Imitrex] hmg-coa reductase inhibitors Allergy Cannot Uncoded 11/10/20 10:07 Remember Home Medications: Home Meds ALPRAZolam [Alprazolam] 0.5 mg PO TID 02/25/13 [History] Acetaminophen with Codeine [Acetaminophen-Cod #3] 1 tab PO Q4H PRN 07/24/16 [History] Aspirin/Dipyridamole [Aggrenox 200-25 MG] 1 cap PO BID 08/02/17 [History] Metoprolol Tartrate 50 mg PO BID 08/02/17 [History] Ezetimibe [Zetia] 10 mg PO BEDTIME 04/23/19 [History] Ibuprofen [Advil] 1 - 2 tab PO Q4HR PRN 04/23/19 [History] Omeprazole 20 mg PO DAILY 04/23/19 [History] Ferrous Sulfate [Iron] 1 tab PO DAILY 11/10/20 [History] Losartan [Cozaar] 25 mg PO DAILY 11/10/20 [History] Multivitamins [Tab-A-Minerva] 1 tab PO DAILY 11/10/20 [History] Past Medical History HEENT History: Reports: Cataract, Impaired Vision, Other (See Below) Other HEENT History: Chalazion left upper eyelid. michaela eye pinguecula Cardiovascular History: Reports: Angina, Arrhythmia, CAD, Hypertension, SOB on Exertion, Other (See Below) Other Cardiovascular History: Fatigue. Palpitations. symptoms of Raynaud's Respiratory History: Gastrointestinal History: Reports: Other (See Below) Other Gastrointestinal History: Frequent diarrhea. Nausea. 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 Musculoskeletal History: Reports: Arthritis, Back Pain, Chronic, Fibromyalgia, Other (See Below) Other Musculoskeletal History: Carpal Tunnel Syndrome. L shoulder tendinosis. michaela AC joint arthrosis. Degenerative disc disease, lumbar. Dupuytren's disease of palm Neurological History: Reports: Cerebral Aneurysms, Headaches, Chronic, Neuropathy, Peripheral, Seizure, TIA, Other (See Below) Other Neuro History: Chronic dizziness. Forgefulness. Bowman's Palsy Psychiatric History: Reports: Anxiety, Depression, Other (See Below) Other Psychiatric History: Insomnia Endocrine/Metabolic History: Reports: None Other Endocrine/Metabolic History: hyperglycemia Hematologic History: Reports: None Oncologic (Cancer) History: Reports: Breast Other Oncologic History: Breast cancer chemotherapy treatment Dermatologic History: Reports: Other (See Below) Other Dermatologic History: Nevus - Past Surgical History Head Surgeries/Procedures: Reports: None HEENT Surgical History: Reports: Cataract Surgery Cardiovascular Surgical History: Reports: Other (See Below) Other Cardiovascular Surgeries/Procedures: Cardiac Cath Respiratory Surgical History: Reports: None GI Surgical History: Reports: Colonoscopy, EGD Female Surgical History: Reports: Hysterectomy, Salpingo-Oophorectomy, Other (See Below) Other Female Surgeries/Procedures: Resection of intraepithelial lesion of the cervix Endocrine Surgical History: Reports: None Neurological Surgical History: Reports: None Musculoskeletal Surgical History: Reports: Carpal Tunnel Oncologic Surgical History: Reports: Biopsy of Breast, Lumpectomy Other Oncologic Surgeries/Procedures: Lymph node dissection with multiple breast biopsies. Dermatological Surgical History: Reports: None Social & Family History - Caffeine Use Caffeine Use: Reports: Coffee, Tea H&P Review of Systems - Review of Systems: Review Of Systems: Comprehensive ROS is negative, except as noted in HPI. Exam - Exam Exam: See Below - Vital Signs Vital Signs: Last Vital Signs Temp 96.2 F L 11/10/20 10:21 Pulse 71 11/10/20 10:21 Resp 20 11/10/20 10:21 BP 146/79 H 11/10/20 10:21 Pulse Ox 92 L 11/10/20 10:21 Weight: 86.183 kg - Exam General: Alert, Oriented Lungs: Clear to Auscultation, Normal Respiratory Effort Cardiovascular: Regular Rate, Regular Rhythm GI/Abdominal Exam: Soft, Non-Tender Sepsis Event Note - Focused Exam Vital Signs: Vital Signs Temp Pulse Resp BP Pulse Ox 11/10/20 10:21 96.2 F L 71 20 146/79 H 92 L Problem List Initiated/Reviewed/Updated: Yes Orders Last 24hrs: Active Orders 24 hr Category Date Time Status Patient Status [ADT] Routine ADT 11/10/20 07:00 Active Peripheral IV Care [RC] . DIRECTED Care 11/10/20 07:00 Active Verify Patient Consent Obtain [RC] ASDIRECTED Care 11/10/20 07:00 Active Nothing Per Oral Diet [DIET] Diet 11/10/20 Breakfast Active Lactated Ringers [Ringers, Lactated] 1,000 ml Med 11/10/20 07:00 Active IV ASDIRECTED Sodium Chloride 0.9% [Saline Flush] Med 11/10/20 07:00 Active 10 ml FLUSH ASDIRECTED PRN Peripheral IV Insertion Adult [OM.PC] Routine Oth 11/10/20 07:00 Ordered Medication Orders Lactated Ringer's (Ringers, Lactated) 1,000 mls @ 125 mls/hr IV ASDIRECTED KIRIT Last Admin: 11/10/20 10:19 Dose: 125 mls/hr Documented by: JOSE ROBERTO Sodium Chloride (Sodium Chloride 0.9% 10 Ml Syringe) 10 ml FLUSH ASDIRECTED PRN PRN Reason: Keep Vein Open Assessment/Plan Comment:: Fe Def Anemia Ok to proceed with EGD, Consent obtained
--- NOTE | 2020-11-10 10:40 | PCM.OPNOTE ---
- General Post-Op/Procedure Note Date of Surgery/Procedure: 11/10/20 Operative Procedure(s): EGD Findings: Normal Pre Op Diagnosis: Fe Def Anemia Post-Op Diagnosis: Same Anesthesia Technique: MAC Primary Surgeon: Jared Baird Anesthesia Provider: Flor Franklin Complications: None Condition: Good
[2020-11-10 13:35] VITALS: BP 147/80; PULSE 76
--- NOTE | 2020-11-11 10:57 | OR ---
Date of Procedure: 11/10/2020 PREOPERATIVE DIAGNOSIS: Iron-deficiency anemia. POSTOPERATIVE DIAGNOSIS: Normal esophagogastroduodenoscopy. PROCEDURE: Esophagogastroduodenoscopy. ANESTHESIA: IV sedation. PROCEDURE IN DETAIL: Patient was brought to the procedure room where she was placed on her left side and IV sedation administered. Oral bite block was placed and the upper endoscope advanced into the esophagus under direct vision without difficulty. Vocal cords were viewed and were normal. Scope was advanced to the third portion of the duodenum. Duodenum and pylorus were normal. Antrum and body of the stomach were normal. Retroflexion reveals a normal-appearing fundus. No hiatal hernia was present. Squamocolumnar junction appears normal. Air was removed from the stomach and the scope was withdrawn through the remaining esophagus which all looks normal. Patient tolerated the procedure well and returned to recovery in stable condition. No source of her iron deficiency was noted. LIBERTY LEE MD /[id number]
== END 2020-11-10 12:04 | disposition home or self-care (01) ==
LOC: LL.SDS 09:09
PROVIDERS: ATTEND Surgery
DX: D50.9 Iron deficiency anemia, unspecified (principal); E11.9 Type 2 diabetes mellitus without complications; J44.9 Chronic obstructive pulmonary disease, unspecified
CPT/HCPCS: 00731; J2250; J2704; J3490; J7120

== ENCOUNTER 2022-05-24 10:12 | Day surgery (SDC) | payer MEDICARE, MEDICAID ==
[~2022-05-24 10:12] MED LIST changes: -Lactated Ringers 1,000 ML IV SCH; -Midazolam 1 MG/ML 2 ML SDV ONE; -Sodium Chloride 0.9% 10 ML Syringe FLUSH PRN
[2022-05-24] MEDS ORDERED: Lactated Ringers 1,000 ML IV SCH (10:45)
[2022-05-24] MEDS ORDERED: Sodium Chloride 0.9% 10 ML Syringe FLUSH PRN (10:45)
[2022-05-24 12:45] VITALS: BP 125/74; PULSE 62
== END 2022-05-24 12:54 | disposition home or self-care (01) ==
LOC: LL.SDS 10:12
PROVIDERS: ATTEND Surgery
DX: Z12.11 Encounter for screening for malignant neoplasm of colon (principal); D64.9 Anemia, unspecified; M19.90 Unspecified osteoarthritis, unspecified site; I10 Essential (primary) hypertension; E78.00 Pure hypercholesterolemia, unspecified; F32.A Depression, unspecified; C50.911 Malignant neoplasm of unspecified site of right female breast; F17.210 Nicotine dependence, cigarettes, uncomplicated; Z79.899 Other long term (current) drug therapy; Z88.8 Allergy status to other drugs, medicaments and biological substances; Z88.6 Allergy status to analgesic agent; Z86.73 Personal history of transient ischemic attack (TIA), and cerebral infarction without residual deficits; Z98.890 Other specified postprocedural states; Z17.0 Estrogen receptor positive status [ER+]
CPT/HCPCS: J2704; J7120

== ENCOUNTER 2023-04-04 10:23 | Day surgery (SDC) | payer MEDICARE, MEDICAID ==
[~2023-04-04 10:23] MED LIST changes: +Midazolam 1 MG/ML 2 ML SDV ONE
[2023-04-04] MEDS ORDERED: Sodium Chloride 0.9% 10 ML Syringe FLUSH PRN (10:30)
[2023-04-04] MEDS: Lactated Ringers 1,000 ML IV SCH (10:37)
[2023-04-04] MEDS ORDERED: Lidocaine 2% 5 ML SDV ONE (11:41)
[2023-04-04] MEDS ORDERED: Glycopyrrolate 0.2 MG/ML SDV IVPUSH ONE (11:41)
[2023-04-04 12:29] VITALS: BP 140/84; PULSE 79
== END 2023-04-04 12:41 | disposition home or self-care (01) ==
LOC: LL.SDS 10:23
PROVIDERS: ATTEND Surgery
DX: K31.A0 Gastric intestinal metaplasia, unspecified (principal); D50.9 Iron deficiency anemia, unspecified; I10 Essential (primary) hypertension; E78.5 Hyperlipidemia, unspecified; E66.9 Obesity, unspecified; Z68.31 Body mass index [BMI] 31.0-31.9, adult; Z79.899 Other long term (current) drug therapy; Z79.82 Long term (current) use of aspirin; Z88.8 Allergy status to other drugs, medicaments and biological substances; Z88.5 Allergy status to narcotic agent
CPT/HCPCS: 00170; 43239; 96374; 96375; A9270; J1200; J2250; J2704; J3490; J7050; J7120; Q0138

== ENCOUNTER 2023-09-19 07:00 | Day surgery (SDC) | payer MEDICARE, MEDICAID ==
[~2023-09-19 07:00] MED LIST changes: -Midazolam 1 MG/ML 2 ML SDV ONE; -Propofol 200 MG/20 ML SDV ONE; +Sodium Chloride 0.9% 10 ML Syringe FLUSH PRN
[2023-09-19] MEDS ORDERED: fentaNYL 100 MCG/2 ML SDV ONE (07:09)
[2023-09-19] MEDS ORDERED: Propofol 200 MG/20 ML SDV ONE (07:10)
[2023-09-19] MEDS ORDERED: Midazolam 1 MG/ML 2 ML SDV ONE (07:10)
[2023-09-19] MEDS: Lactated Ringers 1,000 ML IV SCH (07:59)
[2023-09-19] MEDS ORDERED: Succinylcholine 200 MG/10 ML MDV IVPUSH ONE (08:00)
[2023-09-19] MEDS ORDERED: Dexamethasone 10 MG/ML SDV IVPUSH ONE (08:00)
[2023-09-19] MEDS ORDERED: Rocuronium 100 MG/10 ML MDV IVPUSH ONE (08:00)
[2023-09-19] MEDS ORDERED: ceFAZolin 1 GM Vial IVPUSH ONE (08:00)
[2023-09-19] MEDS ORDERED: Ondansetron 4 MG/2 ML SDV IVPUSH ONE (08:00)
[2023-09-19] MEDS ORDERED: Ketorolac 30 MG/ML SDV IVPUSH ONE (08:00)
[2023-09-19] MEDS: Bupivacaine 0.5%/EPINEPHrine 1:200,000 30 ML SDV INFILT ONE (08:22)
[2023-09-19 13:23] VITALS: BP 141/68; PULSE 70
== END 2023-09-19 12:12 | disposition home or self-care (01) ==
LOC: LL.SDS 07:00
PROVIDERS: ATTEND Surgery
DX: K81.1 Chronic cholecystitis (principal); E87.6 Hypokalemia; I10 Essential (primary) hypertension; I35.1 Nonrheumatic aortic (valve) insufficiency; I67.1 Cerebral aneurysm, nonruptured; D64.9 Anemia, unspecified; F32.A Depression, unspecified; E78.5 Hyperlipidemia, unspecified; F17.210 Nicotine dependence, cigarettes, uncomplicated; Z79.899 Other long term (current) drug therapy; Z79.82 Long term (current) use of aspirin; Z91.041 Radiographic dye allergy status; Z88.5 Allergy status to narcotic agent; Z88.8 Allergy status to other drugs, medicaments and biological substances
CPT/HCPCS: J0330; J0690; J1100; J1885; J2250; J2405; J2704; J3010; J3490; J7120